=== PATIENT | female | born 1950 | race Caucasian/White ===

== ENCOUNTER 2018-04-28 00:52 | Outpatient (CLI) | payer OTHER, SELFPAY ==
--- NOTE | 2018-04-28 15:50 | DI.RAD_ITS ---
SYMPTOMS/DIAGNOSIS: MENOPAUSE, Z78.0 DEXA SCAN WITH MOHAN: The MOHAN image shows no evidence of compression fractures. The bone mineral density measurement of the lumbar spine correspond to a total T score of -1.5, in the osteopenic range. The bone mineral density measurements of the left hip correspond to a total T score of -1.7. The femoral neck T score is -2.5, at the borderline of osteoporosis. The bone mineral density measurements of the left forearm correspond to a total T score of -1.2 and a T score of the distal third of -1.1. IMPRESSION: Osteopenia of the lumbar spine and left forearm. Osteoporosis of the left femoral neck.
== END 2018-04-28 01:12 ==
PROVIDERS: PCP Internal Medicine; Visit Provider Family Medicine
DX: M81.0 Age-related osteoporosis without current pathological fracture (principal); M85.88 Other specified disorders of bone density and structure, other site; Z78.0 Asymptomatic menopausal state
CPT/HCPCS: 77080

== ENCOUNTER 2018-07-28 14:20 | Outpatient (CLI) | payer OTHER, SELFPAY ==
[2018-07-28 14:53] LABS: HCT 38.6 % (36.0-46.0); HGB 12.8 g/dL (12.0-15.5); Mean Corp. HGB Concentration 33.2 g/dL (32.0-36.0); Mean Corpuscular Hemoglobin 33.1 pg (27.0-33.0); Mean Corpuscular Volume 99.7 fL (80-95); Mean Platelet Volume 9.4 fL (8.0-11.0); Platelet Count 244 x1000/uL (130-400); RBC 3.87 m/cumm (4.00-5.20); RBC Distribution Width 12.9 % (11.7-14.6); White Blood Cell Count 9.95 k/cumm (4.4-10.8)
[2018-07-28 15:37] LABS: ALT 23 U/L (12-78); AST 17 U/L (15-37)
[2018-07-28 15:38] LABS: Cholesterol 232 mg/dL (50-200); Triglyceride 198 mg/dL (30-150)
== END 2018-07-28 14:40 ==
PROVIDERS: PCP Internal Medicine; Visit Provider Dermatology
DX: L40.0 Psoriasis vulgaris (principal); Z79.899 Other long term (current) drug therapy
CPT/HCPCS: 36415; 85027; 82465; 84450; 84460; 84478

== ENCOUNTER 2019-12-13 00:48 | Outpatient (CLI) | payer OTHER, SELFPAY ==
[2019-12-13 11:18] LABS: HCT 34.3 % (36.0-46.0); HGB 11.2 g/dL (12.0-15.5); Mean Corp. HGB Concentration 32.7 g/dL (32.0-36.0); Mean Corpuscular Hemoglobin 32.6 pg (27.0-33.0); Mean Corpuscular Volume 99.7 fL (80-95); Mean Platelet Volume 8.8 fL (8.0-11.0); Platelet Count 219 x1000/uL (130-400); RBC 3.44 m/cumm (4.00-5.20); RBC Distribution Width 13.9 % (11.7-14.6); White Blood Cell Count 6.94 k/cumm (4.4-10.8)
[2019-12-13 12:08] LABS: ALT 90 U/L (14-59); AST 62 U/L (15-37)
[2019-12-13 12:10] LABS: Cholesterol 210 mg/dL (<200); Triglyceride 191 mg/dL (<150)
== END 2019-12-13 01:08 ==
PROVIDERS: PCP Internal Medicine; Visit Provider Dermatology
DX: L40.0 Psoriasis vulgaris (principal); Z79.899 Other long term (current) drug therapy
CPT/HCPCS: 36415; 85027; 82465; 84450; 84460; 84478

== ENCOUNTER 2020-01-11 01:54 | Outpatient (CLI) | payer OTHER, SELFPAY ==
[2020-01-11 11:40] LABS: HCT 35.3 % (36.0-46.0); HGB 11.3 g/dL (12.0-15.5); Mean Corpuscular Hemoglobin 32.8 pg (27.0-33.0); Mean Corpuscular Volume 102.3 fL (80-95); Mean Platelet Volume 9.4 fL (8.0-11.0); Platelet Count 361 x1000/uL (130-400); RBC 3.45 m/cumm (4.00-5.20); RBC Distribution Width 16.3 % (11.7-14.6); White Blood Cell Count 10.16 k/cumm (4.4-10.8)
[2020-01-11 12:20] LABS: ALT 34 U/L (14-59); AST 29 U/L (15-37)
[2020-01-11 12:22] LABS: Cholesterol 218 mg/dL (<200); Triglyceride 176 mg/dL (<150)
== END 2020-01-11 02:14 ==
PROVIDERS: PCP Internal Medicine; Visit Provider Dermatology
DX: L40.0 Psoriasis vulgaris (principal); Z79.899 Other long term (current) drug therapy
CPT/HCPCS: 36415; 85027; 82465; 84450; 84460; 84478

== ENCOUNTER 2020-01-19 02:06 | Outpatient (CLI) | payer OTHER, SELFPAY ==
--- NOTE | 2020-01-19 12:15 | DI.MAMMO_ITS ---
EXAM: MAMMO SCREENING CLINICAL HISTORY: SCREENING Z12.31 TECHNIQUE: Mammograms were interpreted according to the usual protocol including computer analysis w [employer] CAD system, tomosynthesis and C-view imaging. COMPARISON: FINDINGS: The breasts are of moderate density with fairly symmetrical distribution of fibroglandular tissue. N o dominant mass or microcalcification is identified breast. Current examination is compared with pre vious examinations including December 2017 and there has been no gross interval change in appearance emili rison with the previous examinations. IMPRESSION: No specific evidence of malignancy at this time. Routine screening examinations are suggested yearly intervals in this age group according to the ACS ACR guidelines. BI-RADS Cat 1 - Negative: Breast Density - Category B - Scattered areas of fibroglandular density:
== END 2020-01-19 02:26 ==
PROVIDERS: PCP Internal Medicine; Visit Provider Family Medicine
DX: Z12.31 Encounter for screening mammogram for malignant neoplasm of breast (principal)
CPT/HCPCS: 77063; 77067

== ENCOUNTER 2020-01-25 14:17 | Outpatient (REF) | payer OTHER, SELFPAY ==
[2020-01-25 20:58] LABS: Anion Gap 10.9 mmol/L (3-11); BUN 31 mg/dL (7-18); CO2 24.1 mmol/L (21.0-32.0); CREATININE 1.55 mg/dL (0.55-1.02); Calcium 8.8 mg/dL (8.5-10.1); Chloride 107 mmol/L (98-107); Estimated GFR 33.25 (mL/min/1.73m2); Glucose 118 mg/dL (74-106); Potassium 4.6 mmol/L (3.5-5.1); Sodium 142 mmol/L (136-145); Uric Acid 10.5 mg/dL (2.6-6.0)
[2020-01-25 21:20] LABS: Abs Immature Grans 0.04 k/cumm (0.0-0.09); Absolute Basophil Count 0.05 k/cumm (0.0-0.2); Absolute Eosinophil Count 0.35 k/cumm (0.0-0.7); Absolute Monocyte Count 1.08 k/cumm (0.11-0.7); Absolute Neutrophil Count 8.06 k/cumm (1.2-6.7); Basophils % 0.4; Eosinophils % 3.1; HGB 11.2 g/dL (12.0-15.5); Immature Grans % 0.4 %; Lymphocytes % 15.1; Mean Corpuscular Hemoglobin 33.4 pg (27.0-33.0); Mean Corpuscular Volume 104.5 fL (80-95); Mean Platelet Volume 10.1 fL (8.0-11.0); Monocytes % 9.6; Neutrophils % 71.4; Platelet Count 358 x1000/uL (130-400); RBC 3.35 m/cumm (4.00-5.20); RBC Distribution Width 15.8 % (11.7-14.6); White Blood Cell Count 11.29 k/cumm (4.4-10.8)
[2020-01-25 22:54] LABS: ESR 56 mm/hr (0-30)
== END 2020-01-25 14:37 ==
LOC: NCHCN 14:17
PROVIDERS: PCP Internal Medicine; Visit Provider Nurse Practitioner Family
DX: M79.671 Pain in right foot (principal)
CPT/HCPCS: 80048; 85652; 83874; 84550; 85025

== ENCOUNTER 2020-01-25 15:03 | Outpatient (CLI) | payer OTHER, SELFPAY ==
--- NOTE | 2020-01-25 14:45 | DI.RAD_ITS ---
EXAM: XR FOOT RT COMPLETE CLINICAL HISTORY: RT FOOT PAIN, M79.671. TECHNIQUE: 2D digital imaging was performed. COMPARISON: No exams were available for comparison FINDINGS: BONES: No acute fracture is present. No bony destructive lesion is seen. There is a small enthesophy te at the Achilles insertion site on the calcaneus. JOINTS: No dislocation present. SOFT TISSUE: Normal. IMPRESSION: Unremarkable radiographs of the right foot. DATA REPOSITORY: RADIATION DOSE DELIVERED:
== END 2020-01-25 15:23 ==
PROVIDERS: PCP Internal Medicine; Visit Provider Nurse Practitioner Family
DX: M79.671 Pain in right foot (principal); M76.61 Achilles tendinitis, right leg
CPT/HCPCS: 73630

== ENCOUNTER 2020-06-28 09:14 | Outpatient (REF) | payer OTHER, SELFPAY ==
[2020-06-28 22:34] LABS: HCT 35.6 % (36.0-46.0); HGB 11.5 g/dL (11.2-15.7); MCH 31.9 pg (27.0-33.0); MCHC 32.3 % (32.0-36.0); MCV 98.6 fL (80-95); MPV 9.9 fL (8.0-11.0); Platelet Count 399 10^3/uL (130-400); RBC 3.61 10^6/uL (3.93-5.22); RDW-SD 47.1 fL; WBC 7.75 10^3/uL (4.4-10.8)
[2020-06-28 22:52] LABS: ALT 14 U/L (14-59); AST 14 U/L (15-37); Albumin 3.9 g/dL (3.4-5.0); Alkaline Phosphatase 112 U/L (46-116); Anion Gap 8.4 mmol/L (3-11); BUN 29 mg/dL (7-18); Bilirubin, Total 0.3 mg/dL (0.2-1.0); CO2 26.6 mmol/L (21.0-32.0); CREATININE 1.66 mg/dL (0.55-1.02); Calcium 9.2 mg/dL (8.5-10.1); Calculated LDL 120 mg/dL (<100); Chloride 106 mmol/L (98-107); Cholesterol 213 mg/dL (<200); Estimated GFR 30.63 (mL/min/1.73m2); Glucose 98 mg/dL (74-106); HDL Cholesterol 57 mg/dL (40-60); Potassium 5.3 mmol/L (3.5-5.1); Sodium 141 mmol/L (136-145); Total Protein 7.4 g/dL (6.4-8.2); Triglyceride 184 mg/dL (<150)
== END 2020-06-28 09:34 ==
LOC: NCHCN 09:14
PROVIDERS: PCP Internal Medicine; Visit Provider Family Medicine
DX: Z00.00 Encounter for general adult medical examination without abnormal findings (principal); I10 Essential (primary) hypertension; E66.9 Obesity, unspecified
CPT/HCPCS: 80053; 80061; 85027

== ENCOUNTER 2020-09-01 03:35 | Outpatient (CLI) | payer OTHER, SELFPAY ==
[2020-09-01 12:54] LABS: HGB 10.6 g/dL (11.2-15.7); MCHC 33.1 % (32.0-36.0); MCV 99.7 fL (80-95); MPV 9.2 fL (8.0-11.0); Platelet Count 249 10^3/uL (130-400); RBC 3.21 10^6/uL (3.93-5.22); RDW 14.5 % (11.7-14.6); RDW-SD 51.8 fL; WBC 10.46 10^3/uL (4.4-10.8)
[2020-09-01 14:41] LABS: Cholesterol 220 mg/dL (<200); Triglyceride 178 mg/dL (<150)
[2020-09-01 14:48] LABS: ALT 24 U/L (14-59); AST 17 U/L (15-37)
== END 2020-09-01 03:55 ==
PROVIDERS: PCP Family Medicine; Visit Provider Dermatology
DX: L40.0 Psoriasis vulgaris (principal); Z79.899 Other long term (current) drug therapy
CPT/HCPCS: 36415; 85027; 82465; 84450; 84460; 84478

== ENCOUNTER 2020-09-29 13:36 | Outpatient (REF) | payer OTHER, SELFPAY ==
[2020-09-30 11:44] LABS: COVID-19 RT-PCR UVMMC Result Positive (Negative)
== END 2020-09-29 13:37 | disposition home or self-care (01) ==
LOC: NCHCN 13:36
PROVIDERS: PCP Family Medicine; Visit Provider Family Medicine
DX: Z20.822 Contact with and (suspected) exposure to COVID-19 (principal)
CPT/HCPCS: U0003

== ENCOUNTER 2020-12-04 03:25 | Outpatient (CLI) | payer OTHER, SELFPAY ==
[2020-12-04 09:04] LABS: HCT 34.3 % (36.0-46.0); HGB 10.9 g/dL (11.2-15.7); MCH 32.3 pg (27.0-33.0); MCHC 31.8 % (32.0-36.0); MCV 101.8 fL (80-95); MPV 9.1 fL (8.0-11.0); Platelet Count 200 10^3/uL (130-400); RBC 3.37 10^6/uL (3.93-5.22); RDW 13.4 % (11.7-14.6); RDW-SD 49.1 fL; WBC 4.79 10^3/uL (4.4-10.8)
[2020-12-04 09:52] LABS: ALT 21 U/L (14-59); AST 15 U/L (15-37)
[2020-12-04 09:53] LABS: Cholesterol 193 mg/dL (<200); Triglyceride 175 mg/dL (<150)
== END 2020-12-04 03:26 | disposition home or self-care (01) ==
LOC: LBO 03:26
PROVIDERS: PCP Family Medicine; Visit Provider Dermatology
DX: L40.0 Psoriasis vulgaris (principal); Z79.899 Other long term (current) drug therapy
CPT/HCPCS: 36415; 85027; 82465; 84450; 84460; 84478

== ENCOUNTER 2021-07-06 09:23 | Outpatient (REF) | payer MEDICARE, SELFPAY ==
[2021-07-06 15:56] LABS: ALT 18 U/L (14-59); AST 16 U/L (15-37); Albumin 3.9 g/dL (3.4-5.0); Alkaline Phosphatase 109 U/L (46-116); BUN 35 mg/dL (7-18); Bilirubin, Total 0.4 mg/dL (0.2-1.0); CREATININE 1.7 mg/dL (0.55-1.02); Calcium 8.9 mg/dL (8.5-10.1); Calculated LDL 120 mg/dL (<100); Chloride 107 mmol/L (98-107); Cholesterol 199 mg/dL (<200); Estimated GFR 29.71 (mL/min/1.73m2); Glucose 93 mg/dL (74-106); HDL Cholesterol 59 mg/dL (40-60); Potassium 5.2 mmol/L (3.5-5.1); Sodium 144 mmol/L (136-145); Total Protein 7.3 g/dL (6.4-8.2); Triglyceride 102 mg/dL (<150)
== END 2021-07-06 09:24 | disposition home or self-care (01) ==
LOC: NCHCN 09:23
PROVIDERS: PCP Family Medicine; Visit Provider Family Medicine
DX: I10 Essential (primary) hypertension (principal); E66.9 Obesity, unspecified
CPT/HCPCS: 80053; 80061

== ENCOUNTER 2022-04-18 15:39 | Outpatient (REF) | payer MEDICARE, SELFPAY ==
[2022-04-18 18:25] LABS: Absolute Basophil Count 0.08 10^3/uL (0.0-0.2); Basophils % 0.3; HGB 10.8 g/dL (11.2-15.7); Immature Grans % 1.1; Lymphocytes % 6.7; MCH 32.7 pg (27.0-33.0); MCHC 32.7 % (32.0-36.0); MCV 100 fL (80-95); MPV 9.9 fL (8.0-11.0); Monocytes % 5.4; Neutrophils % 86.5; Platelet Count 364 10^3/uL (130-400); RDW-SD 51.1 fL
[2022-04-18 18:28] LABS: Absolute Lymphocyte Count 1.82 10^3/uL (1.2-3.4); Absolute Monocyte Count 1.46 10^3/uL (0.1-0.8); Absolute Neutrophil Count 23.43 10^3/uL (1.2-6.7)
[2022-04-18 18:40] LABS: WBC 27.09 10^3/uL (4.4-10.8)
[2022-04-18 18:45] LABS: ALT 10 U/L (14-59); AST 14 U/L (15-37); Albumin 3.5 g/dL (3.4-5.0); Alkaline Phosphatase 93 U/L (46-116); Anion Gap 12.3 mmol/L (3-11); BUN 38 mg/dL (7-18); Bilirubin, Total 0.7 mg/dL (0.2-1.0); CO2 22.7 mmol/L (21.0-32.0); CREATININE 2.1 mg/dL (0.55-1.02); Calcium 8.8 mg/dL (8.5-10.1); Chloride 98 mmol/L (98-107); Estimated GFR 24.73 (mL/min/1.73m2); Glucose 120 mg/dL (74-106); Potassium 4.3 mmol/L (3.5-5.1); Sodium 133 mmol/L (136-145); Total Protein 7.3 g/dL (6.4-8.2)
[2022-04-18 18:48] LABS: Diff Comment Agrees w/ Instrument; RBC Morphology Normal
== END 2022-04-18 15:40 | disposition home or self-care (01) ==
LOC: NCHCN 15:39
PROVIDERS: PCP Family Medicine; Visit Provider Nurse Practitioner Family
DX: R10.9 Unspecified abdominal pain (principal)
CPT/HCPCS: 80053; 85025; 87086

== ENCOUNTER 2022-04-19 08:57 | Inpatient (IN) | payer MEDICARE, SELFPAY ==
[2022-04-19] VITALS (46 sets, daily range): BP systolic 69–135; BP diastolic 51–81; PULSE 70–103; RESP 11–19; TEMP 35.9–37.6; O2SAT 93–99
--- NOTE | 2022-04-19 09:15 | DI.CT_ITS ---
Exam(s) CT ABDOMEN PELVIS WO EXAM: CT ABDOMEN PELVIS WO INDICATION: abd pain. COMPARISON: No exams were available for comparison TECHNIQUE: FINDINGS: CT examination of the abdomen and pelvis was performed with oral contrast only. Images obtained through the lung bases show marked pulmonary emphysematous changes.. The liver is unremarkable in appearance. Gallbladder and bile ducts are CT normal. Pancreas appears normal. Spleen is unremarkable in appearance. Adrenals appear normal. The kidneys are unremarkable with no evidence of hydronephrosis, nephrolithiasis, or renal mass.. . Abdominal aorta is of normal diameter and no major vascular abnormality is seen. No abdominal wall hernia. No abdominal or pelvic adenopathy. Cable Installation Manager structures not well visualized, uterus appears atrophic or absent.. Appendix is normal. There is wall thickening of the sigmoid colon and there is pericolonic fat stran ding and small quantity of free fluid in the pelvis. Additionally, there is an approximately 2 cm in diameter fluid and gas collection seen adjacent to the colon and adjacent to small bowel without luis tierra defined fat planes between the viscera, this could represent a small Holly colonic abscess althou gh it may just represent intraluminal gas and fluid. There is trace gas in the mesocolon consistent with micro perforation. Urinary bladder is nearly empty.. IMPRESSION: The appearance is consistent with sigmoid diverticulitis, possible small Holly colonic abscess adjacen t to the sigmoid as described above. Micro perforation is noted. Appropriate follow-up studies sean stoll.. RADIATION DOSE DELIVERED: 767.26mGy.cm Total DLP 767.26mGy.cm Total DLP !Error CTDIvol RADIATION OPTIMIZATION: All CT scans at this facility use at least one of these dose optimization te chniques: automated exposure control; mA and/or kV adjustment per patient size (includes targeted exa ms where dose is matched to clinical indication); or iterative reconstruction.
--- NOTE | 2022-04-19 09:31 | ED.GENADUL_ITS ---
Discharge Plan Disposition Patient Disposition: [facility] INPATIENT Condition: Fair Discharge Details Clinical Impression: Acute diverticulitis, Decreased renal function Admit Date/Time: 04/19/22 11:41 Admit Provider: Ashley Robbins Attending Provider: Ashley Robbins Primary Care Provider: Stephanie Stephens ED Provider: Ed Burroughs Discharge Data Discharge Date/Time-TO BE ENTERED AT DEPARTURE: 04/19/22 12:58 Medical Decision Making Patient referred to the emergency department for chief complaint of abdominal pain with diarrhea for the past 3 days. Primary care perform labs and noted a significant elevation of WBCs. Patient states no improvement of symptoms. She does have significant pain this morning and took 1000 mg of acetaminophen prior to arrival. Patient denies nausea vomiting, denies any bloody stools or mucus in her diarrhea, denies travel or other people within the home with similar symptoms. Physical exam shows right lower quadrant tenderness otherwise unremarkable exam. Patient does state that she has had a hysterectomy with at least 1 ovary removed, but does still have her appendix. Patient denies any vaginal or urinary symptoms at this time. We will plan on checking labs and CT imaging. Pending results we will give patient fluid bolus, Toradol for slightly noted fever, and small dose of morphine. Reviewed patient's CBC which endorses a continued leukocytosis but slightly improved from 2 days ago but patient still has a white count of 22.59, neutrophil of 19 and monocytes of 1.6. Patient does have chronic but stable anemia. Sodium is 132, BUN is elevated at 41 with creatinine of 2.1 and GFR of 24. This is similar to previous labs. Glucose of 123 and low ALT of 12. Albumin is 3.3 lipase is normal at 103. Still pending urine and stool specimens. While drinking oral contrast patient did have episode of vomiting so stopped contrast and send patient to CAT scan. Spoke to radiologist and reviewed CT imaging which does show a diverticulitis with a questionable 2 cm or less abscess and subtle signs of perforation. we will start patient on Zosyn and call general surgeon on-call. Spoke to on-call general surgeon who agreed to have patient admitted. Patient and family were also in agreement with this plan of care. Patient was stable at time of admission to inpatient unit. Lab Data Lab results reviewed: Yes I reviewed the patient's lab results. HPI General Mode of arrival: ambulatory . Date/Time Provider Initiated Documentation: 04/19/22 09:08 . Limitations to Documentation: no limitations . Information obtained by: patient, family, RN notes reviewed and old records reviewed . History of Present Illness 72 year old F presents to the emergency department with the chief complaint of Abdominal pain, described as moderate, with intensity rated at 4. Quality is described as aching, and is localized to the abdomen. Patient reports no radiation. Patient started experiencing this day(s) (3) and it has been constant. No relieving factors improve symptom(s), No exacerbating factors reported . Patient did receive the following treatments prior to arrival, other (1000 mg acetaminophen) Related Data Home Medications Medication Instructions Recorded Confirmed albuterol sulfate 90 mcg/actuation See Rx Instructions .Route .COMPLEX 04/19/22 04/19/22 aerosol inhaler betamethasone dipropionate 0.05 % 1 applic topical BID 04/19/22 04/19/22 topical cream calcipotriene 0.005 % topical cream 1 applic topical BID 04/19/22 04/19/22 clobetasol 0.05 % topical cream 1 applic topical BID 04/19/22 04/19/22 desoximetasone 0.25 % topical 1 applic topical BID PRN 04/19/22 04/19/22 ointment folic acid 1 mg tablet 1 mg PO DAILY 04/19/22 04/19/22 lisinopril 20 1 tab PO DAILY 04/19/22 04/19/22 mg-hydrochlorothiazide 12.5 mg tablet methotrexate sodium 2.5 mg tablet See Rx Instructions .Route .COMPLEX 04/19/22 04/19/22 Allergies Allergy/AdvReac Type Severity Reaction Status Date / Time No Known Allergies Allergy Unverified 04/19/22 09:07 General Stated Complaint: Abd Prob SUNIL: 3 Review of Systems Constitutional Constitutional: Denies chills and Denies fever(s) Cardiovascular Cardiovascular: Denies chest pain and Denies dyspnea Respiratory Respiratory: Denies cough and Denies dyspnea Gastrointestinal Gastrointestinal: Reports as per HPI, Reports abdominal pain, Denies melena, Denies bloating, Denies hematochezia, Denies change in bowel habits, Denies constipation, Reports diarrhea, Reports loose stools, Denies nausea and Denies vomiting Genitourinary Genitourinary: Denies hematuria, Denies urinary incontinence, Denies urinary hesitancy and Denies urinary urgency Musculoskeletal Musculoskeletal: Denies back pain Integumentary/Breasts Skin/Breast: Denies rash PFSH All Active Problems (Updated 04/20/22 @ 17:34 by Ed Burroughs NP) Decreased renal function (Acute) Acute diverticulitis (Acute) Medical History Asthma Hypertension Osteopenia Psoriasis Social History Smoking/Tobacco Use Status: Former Tobacco Use Smoking risk assessment performed?: Yes Substance use type: does not use Do you feel safe at home: Yes Do you feel safe in your relationship?: Yes Additional Social history: family members at bedside Exam Const General: cooperative Orientation: alert, awake and oriented x3 Resp Effort & Inspection: normal respiratory effort and able to speak in complete sentences Auscultation: clear to auscultation bilaterally Cardio Rate: regular rate Rhythm: regular rhythm Heart Sounds: S1 normal and S2 normal GI Palpation: soft, no hepatosplenomegaly, not firm, no guarding, no masses, no pulsatile masses, not rigid, no splenomegaly and tender in the RLQ; Delong's sign negative, with no rebound tenderness and Rovsing's sign negative Auscultation: normal bowel sounds Back/Spine/Pelvis Back: no CVA tenderness Neuro General: patient alert, patient awake, patient oriented x3, gait normal and moves all extremities Course Vital Signs Vital signs: Vital Signs Temperature 37.6 C H 04/19/22 09:02 Pulse 101 H 04/19/22 09:02 Respiratory Rate 18 04/19/22 09:02 Blood Pressure 135/63 04/19/22 09:02 Pulse Oximetry 98 04/19/22 09:02 Temperature 37.6 C H 04/19/22 09:02 Temperature Source Skin 04/19/22 09:02 Pulse 101 H 04/19/22 09:02 Respiratory Rate 18 04/19/22 09:02 Blood Pressure 135/63 04/19/22 09:02 Blood Pressure Position Sitting 04/19/22 09:02 Pulse Oximetry 98 04/19/22 09:02 Oxygen Delivery Method Room Air 04/19/22 09:02 Oxygen Flow Rate 0 04/19/22 09:02 Pain Level 4 04/19/22 09:02 Lab/Test Results Lab/Test Results: 04/19/22 09:20 Blood Blood Culture - Pending 04/19/22 09:16 Blood Blood Culture - Pending
[2022-04-19 09:35] LABS: Abs Immature Grans 0.24 10^3/uL (0.0-0.06); Absolute Eosinophil Count 0.05 10^3/uL (0.0-0.7); Absolute Lymphocyte Count 1.51 10^3/uL (1.2-3.4); Basophils % 0.3; Eosinophils % 0.2; HCT 32.9 % (36.0-46.0); HGB 10.9 g/dL (11.2-15.7); Immature Grans % 1.1; Lymphocytes % 6.7; MCH 32.3 pg (27.0-33.0); MCHC 33.1 % (32.0-36.0); MCV 98 fL (80-95); MPV 9.5 fL (8.0-11.0); Monocytes % 7.1; Neutrophils % 84.6; Platelet Count 353 10^3/uL (130-400); RBC 3.37 10^6/uL (3.93-5.22); RDW 13.5 % (11.7-14.6); RDW-SD 48.7 fL; WBC 22.59 10^3/uL (4.4-10.8)
[2022-04-19] MEDS: Normal Saline 1,000 ML 500 ML IV (09:36)
[2022-04-19] MEDS: Ketorolac 15 MG/ML VIAL IVP (09:37)
[2022-04-19] MEDS: Ondansetron 4 MG/2 ML VIAL IVP ×2 (09:37→20:37)
[2022-04-19] MEDS: MORPHine 10 MG/ML VIAL 2 MG IVP (09:37)
[2022-04-19 09:39] LABS: Absolute Basophil Count 0.07 10^3/uL (0.0-0.2); Absolute Neutrophil Count 19.11 10^3/uL (1.2-6.7)
[2022-04-19 10:05] LABS: ALT 12 U/L (14-59); AST 15 U/L (15-37); Albumin 3.3 g/dL (3.4-5.0); Alkaline Phosphatase 93 U/L (46-116); BUN 41 mg/dL (7-18); Bilirubin, Total 0.5 mg/dL (0.2-1.0); CREATININE 2.1 mg/dL (0.55-1.02); Calcium 9.2 mg/dL (8.5-10.1); Chloride 99 mmol/L (98-107); Estimated GFR 24.73 (mL/min/1.73m2); Glucose 123 mg/dL (74-106); Lipase 103 U/L (73-393); Magnesium 2.3 mg/dL (1.8-2.4); Potassium 4.3 mmol/L (3.5-5.1); Sodium 132 mmol/L (136-145); Total Protein 8.2 g/dL (6.4-8.2)
[2022-04-19] MEDS: Barium Sulfate 2% W/V-Berry Smoothie 450 ML BTL PO (10:33)
[2022-04-19] MEDS: Prochlorperazine 10 MG/2 ML VIAL 5 MG IVP (11:42)
[2022-04-19] MEDS: PIPERACILLIN/TAZO 3.375 GM in Normal Saline 50 ML IVPB (11:43)
[2022-04-19 11:56] LABS: Source Nasal/Nares
[2022-04-19 12:30] LABS: COVID-19 PCR Negative (Negative)
[2022-04-19] MEDS: FAMOTIDINE 20 MG in Normal Saline 100 ML 400 MG IVPB (12:38)
--- NOTE | 2022-04-19 13:48 | W.PREOPHP ---
Assessment and Plan Assessment and plan (1) Acute diverticulitis: Status: Acute Assessment and plan: Mrs Looney is a pleasant 72-year-old female who is admitted with acute diverticulitis with question of contained perforation/small abscess. She has been ill for about 3 days. Her creatinine is also elevated today which is abnormal for her. I suspect that she is dehydrated. She also has a leukocytosis of over 22,000. Her abdomen is tender but otherwise benign. I discussed with the patient and her what the diverticulitis is in the treatment. Treatment at this time will be supportive. If her symptoms get worse she may end up needing emergency surgery which would require a colostomy. For now we will hydrate and treat her with antibiotics. The patient understands and is in agreement with the plan. Plan: - IV antibiotics - hydration - clear lqiuid diet - pain medication and anti-nausea meds - supportive care - dvt prophilaxis with lovenox - GI prophilaxis with IV pepcid - repeat labs in am (2) Hypertension: History of Present Illness Consults Consult date: 04/19/22 Requesting physician: Ed Burroughs Narrative: Mrs Samson is a pleasant 72 year old? F who presented to the emergency department with the chief complaint of Abdominal pain,?described as moderate,?with intensity rated at 4.?Quality is described as aching,?and is localized to the abdomen.?Patient reports no radiation.?Patient started experiencing this day(s) (3)?and it has been constant.?No relieving factors improve symptom(s),?No exacerbating factors reported . The patient was seen by her primary care physician who ordered some labs. It showed a white blood cell count of 27,000. Work-up in the emergency department shows a white count of 22.5, hemoglobin of 10.9 hematocrit of 32.9, and platelet count of 353. Her sodium is slightly low at 132. Her creatinine is also elevated at 2.1 which is new for her. I suspect that the patient is quite dehydrated due to not feeling well for 3 days. Her does state that she has eaten very little and has also not had a lot to drink over the last 3 days. I reviewed the CT scan report and images Radiologist interpretation: The liver is unremarkable in appearance. Gallbladder and bile ducts are CT normal. Pancreas appears normal. Spleen is unremarkable in appearance. Adrenals appear normal.? The kidneys are unremarkable with no evidence of hydronephrosis, nephrolithiasis, or renal mass.. . Abdominal aorta is of normal diameter and no major vascular abnormality is seen. No abdominal wall hernia. No abdominal or pelvic adenopathy. Supervisor Wet End structures not well visualized, uterus appears atrophic or absent.. Appendix is normal.? There is wall thickening of the sigmoid colon and there is pericolonic fat stranding and small quantity of free fluid in the pelvis.? Additionally, there is an approximately 2 cm in diameter fluid and gas collection seen adjacent to the colon and adjacent to small bowel without clearly defined fat planes between the viscera, this could represent a small Holly colonic abscess although it may just represent intraluminal gas and fluid.? There is trace gas in the mesocolon consistent with micro perforation.? Urinary bladder is nearly empty.. IMPRESSION: The appearance is consistent with sigmoid diverticulitis, possible small Holly colonic abscess adjacent to the sigmoid as described above.? Micro perforation is noted.? Appropriate follow-up studies suggested.. The patient does have a history of hypertension. Her blood pressure is low with a systolic in the 90s. Her heart rate is normal at 70 bpm. She does take lisinopril and hydrochlorothiazide at nighttime. Is any chest pain, shortness of breath, nausea or vomiting. She does not have a history of MS or stroke. She does have some mild COPD for which she takes on albuterol spray infrequently. Review of Systems Constitutional Constitutional: Reports fatigue, Denies fever(s), Denies headache(s), Reports poor appetite and Denies weight loss Eyes Eyes: Denies change in vision ENT Ears, Nose, Mouth, and Throat: Denies headache(s) and Denies hoarseness Cardiovascular Cardiovascular: Denies chest pain, Denies chest pain at rest, Denies irregular heart rhythm, Denies palpitations, Denies dyspnea and Denies dyspnea on exertion Respiratory Respiratory: Denies cough, Denies dyspnea and Denies dyspnea on exertion Gastrointestinal Gastrointestinal: Reports as per HPI, Denies dyspepsia and Denies heartburn Genitourinary Genitourinary: Reports system reviewed and no additional complaints, except as documented Musculoskeletal Musculoskeletal: Reports system reviewed and no additional complaints, except as documented Integumentary/Breasts Skin/Breast: Reports system reviewed and no additional complaints, except as documented Neurologic Neurologic: Reports system reviewed and no additional complaints, except as documented and Denies headache(s) Psychiatric Psychiatric: Reports system reviewed and no additional complaints, except as documented Endocrine Endocrine: Reports system reviewed and no additional complaints, except as documented, Reports fatigue and Denies palpitations Hematologic/Lymphatic Hematologic/Lymphatic: Denies easy bleeding, Denies easy bruising and Denies lymphadenopathy Allergic/Immunologic Allergic/Immunologic: Reports system reviewed and no additional complaints, except as documented PFSH All Active Problems Acute diverticulitis (Acute) Medical History Asthma Hypertension Osteopenia Psoriasis Social History Smoking/Tobacco Use Status: Former Tobacco Use Smoking risk assessment performed?: Yes Substance use type: does not use Do you feel safe at home: Yes Do you feel safe in your relationship?: Yes Additional Social history: family members at bedside Meds Allergies and Home Medications Allergies Allergy/AdvReac Type Severity Reaction Status Date / Time No Known Allergies Allergy Unverified 04/19/22 09:07 Home Medications Medication Instructions Recorded Confirmed Type albuterol sulfate 90 mcg/actuation See Rx Instructions .Route .COMPLEX 04/19/22 04/19/22 History aerosol inhaler betamethasone dipropionate 0.05 % 1 applic topical BID 04/19/22 04/19/22 History topical cream calcipotriene 0.005 % topical cream 1 applic topical BID 04/19/22 04/19/22 History clobetasol 0.05 % topical cream 1 applic topical BID 04/19/22 04/19/22 History desoximetasone 0.25 % topical 1 applic topical BID PRN 04/19/22 04/19/22 History ointment folic acid 1 mg tablet 1 mg PO DAILY 04/19/22 04/19/22 History lisinopril 20 1 tab PO DAILY 04/19/22 04/19/22 History mg-hydrochlorothiazide 12.5 mg tablet methotrexate sodium 2.5 mg tablet See Rx Instructions .Route .COMPLEX 04/19/22 04/19/22 History Exam Const General: cooperative, comfortable and no acute distress Nutritional Appearance: overweight Orientation: alert, awake and oriented x3 HENMT Head: normocephalic and atraumatic Eyes Pupils: PERRL Resp Auscultation: clear to auscultation bilaterally Cardio Rate: regular rate Rhythm: regular rhythm GI Inspection: normal to inspection Palpation: soft, no hepatosplenomegaly and tender (lower abdomen) Auscultation: normal bowel sounds Results Imaging Abdomen CT scan report/results: report reviewed and image reviewed Labs Result diagrams: 04/19/22 09:20 04/19/22 09:20 Labs: Laboratory Results - last 24 hr 04/19/22 04/19/22 04/19/22 09:20 09:20 11:53 WBC 22.59 H RBC 3.37 L Hgb 10.9 L Hct 32.9 L MCV 98 H MCH 32.3 MCHC 33.1 RDW 13.5 Plt Count 353 MPV 9.5 Immature Gran % 1.1 Neutrophils % 84.6 Lymphocytes % 6.7 Monocytes % 7.1 Eosinophils % 0.2 Basophils % 0.3 Nucleated RBC % 0.0 Absolute Neutrophils 19.11 H Absolute Lymphocytes 1.51 Absolute Monocytes 1.60 H Absolute Eosinophils 0.05 Absolute Basophils 0.07 Sodium 132 L Potassium 4.3 Chloride 99 Carbon Dioxide 24.0 Anion Gap 9.0 BUN 41 H Creatinine 2.1 H Est GFR (CKD-EPI 2020) 24.73 Glucose 123 H Calcium 9.2 Magnesium 2.3 Total Bilirubin 0.5 AST 15 ALT 12 L Alkaline Phosphatase 93 Total Protein 8.2 Albumin 3.3 L Lipase 103 COVID-19 Source Nasal/Nares SARS-CoV-2 (PCR) Negative Last Vital Signs Temp 97.0 F L 04/19/22 13:28 Pulse 70 04/19/22 13:28 Resp 16 04/19/22 13:28 BP 97/60 L 04/19/22 13:28 Pulse Ox 98 04/19/22 13:28
[2022-04-19] MEDS: Enoxaparin 30 MG/0.3 ML SYR SC (14:03)
[2022-04-19] MEDS: Normal Saline 1,000 ML 1000 ML IV (14:03)
[2022-04-19] MEDS: Lactated Ringers 1,000 ML 75 ML IV (15:24)
[2022-04-19] MEDS: PIPERACILLIN/TAZO 2.25 GM in Normal Saline 50 ML IVPB ×2 (18:26→23:34)
[2022-04-19] MEDS: Normal Saline Flush 10 ML SYR IVP (20:37)
[2022-04-19] MEDS: Acetaminophen 325 MG TAB 650 MG PO (20:44)
[2022-04-19] MEDS: Albuterol HFA 8 GM 60 PUFF INH IH (21:05)
[2022-04-19 21:11] LABS: Bilirubin Negative (Negative); Blood Negative (Negative); Clarity Clear (Clear); Glucose Negative (Negative); Ketones Negative (Negative); Leukocyte Esterase Negative (Negative); Nitrite Negative (Negative); Specific Gravity 1.025 (1.005-1.025); Urobilinogen 0.2 EU/dL (Up TO 0.2); pH 5.5 (5-8)
[2022-04-19 21:20] LABS: Bacteria Negative HPF (Negative); C & S Indicated? No; Casts Negative LPF (Negative); Crystals Negative HPF (Negative); Epithelial Cells Negative HPF (Negative); Mucus Negative (Negative); RBC Negative HPF (0-2); WBC Negative HPF (0-5)
[2022-04-20 03:34] VITALS: PULSE 80; RESP 14; O2SAT 96
[2022-04-20] MEDS: PIPERACILLIN/TAZO 2.25 GM in Normal Saline 50 ML IVPB ×4 (05:25→23:21)
[2022-04-20 06:07] LABS: Abs Immature Grans 0.11 10^3/uL (0.0-0.06); Absolute Eosinophil Count 0.04 10^3/uL (0.0-0.7); Absolute Monocyte Count 1.18 10^3/uL (0.1-0.8); Basophils % 0.3; Eosinophils % 0.3; HCT 27.6 % (36.0-46.0); Immature Grans % 0.7; Lymphocytes % 8.3; MCH 31.6 pg (27.0-33.0); MCHC 32.6 % (32.0-36.0); MCV 97 fL (80-95); MPV 9.4 fL (8.0-11.0); Neutrophils % 82.4; Platelet Count 284 10^3/uL (130-400); RBC 2.85 10^6/uL (3.93-5.22); RDW 13.2 % (11.7-14.6); RDW-SD 47.7 fL; WBC 14.75 10^3/uL (4.4-10.8)
[2022-04-20 06:10] LABS: Absolute Basophil Count 0.04 10^3/uL (0.0-0.2); Absolute Lymphocyte Count 1.22 10^3/uL (1.2-3.4); Absolute Neutrophil Count 12.15 10^3/uL (1.2-6.7)
[2022-04-20 06:21] LABS: Anion Gap 10.7 mmol/L (3-11); BUN 32 mg/dL (7-18); CO2 20.3 mmol/L (21.0-32.0); CREATININE 1.8 mg/dL (0.55-1.02); Calcium 8.3 mg/dL (8.5-10.1); Chloride 106 mmol/L (98-107); Estimated GFR 29.75 (mL/min/1.73m2); Glucose 111 mg/dL (74-106); Magnesium 2.1 mg/dL (1.8-2.4); Potassium 3.9 mmol/L (3.5-5.1); Sodium 137 mmol/L (136-145)
[2022-04-20 07:40] VITALS: BP 116/61; PULSE 93; RESP 16; TEMP 37.2; O2SAT 97
[2022-04-20] MEDS: hydroCHLOROthiazide 12.5 MG TAB PO (07:43)
[2022-04-20] MEDS: Lisinopril 20 MG TAB PO (07:43)
[2022-04-20] MEDS: Folic Acid 1 MG TAB PO (07:43)
[2022-04-20] MEDS: Lactated Ringers 1,000 ML 75 ML IV (08:07)
--- NOTE | 2022-04-20 11:38 | PGE_ITS ---
Date of Service Date of service: 04/20/22 Time of Service: 11:38 Assessment and Plan Assessment and plan (1) Acute diverticulitis: Status: Acute Assessment and plan: Trupti feels much better today. SHe would like to go home. I reviewed her labs with her and recommend at least one more day of IV antibiotics. Plan: - IV antibiotics - D/C IV fluids - advance diet to low fiber - pain medication and anti-nausea meds - supportive care - dvt prophilaxis with lovenox - GI prophilaxis with IV pepcid - repeat labs in am Maybe home tomorrow (2) Hypertension: Subjective Subjective Interval history since last seen: Trupti is doing well. She has no pain. She feels well. Has been tolerating clear liquids. Feels hungry. Had a low grade fever this morning. HAd a liquid BM Exam HENMT Head: normocephalic and atraumatic Resp Effort & Inspection: normal respiratory effort Auscultation: clear to auscultation bilaterally Cardio Rate: regular rate Rhythm: regular rhythm GI Palpation: soft and nontender Objective Last Vital Signs Temp 99.0 F 04/20/22 07:40 Pulse 93 H 04/20/22 07:40 Resp 16 04/20/22 07:40 BP 116/61 04/20/22 07:40 Pulse Ox 97 04/20/22 07:40 Laboratory Results - last 24 hr 04/19/22 04/19/22 04/20/22 11:53 20:40 05:55 WBC RBC Hgb Hct MCV MCH MCHC RDW Plt Count MPV Immature Gran % Neutrophils % Lymphocytes % Monocytes % Eosinophils % Basophils % Nucleated RBC % Absolute Neutrophils Absolute Lymphocytes Absolute Monocytes Absolute Eosinophils Absolute Basophils Sodium 137 Potassium 3.9 Chloride 106 Carbon Dioxide 20.3 L Anion Gap 10.7 BUN 32 H Creatinine 1.8 H Est GFR (CKD-EPI 2020) 29.75 Glucose 111 H Calcium 8.3 L Magnesium 2.1 Urine Color Yellow Urine Clarity Clear Urine pH 5.5 Ur Specific Aristes 1.025 Urine Protein 30 H Urine Ketones Negative Urine Blood Negative Urine Nitrite Negative Urine Bilirubin Negative Urine Urobilinogen 0.2 Ur Leukocyte Esterase Negative Urine RBC Negative Urine WBC Negative Ur Epithelial Cells Negative Urine Crystals Negative Urine Bacteria Negative Urine Casts Negative Urine Mucus Negative Ur Culture Indicated? No Urine Glucose Negative COVID-19 Source Nasal/Nares SARS-CoV-2 (PCR) Negative 04/20/22 05:55 WBC 14.75 H RBC 2.85 L Hgb 9.0 L Hct 27.6 L MCV 97 H MCH 31.6 MCHC 32.6 RDW 13.2 Plt Count 284 MPV 9.4 Immature Gran % 0.7 Neutrophils % 82.4 Lymphocytes % 8.3 Monocytes % 8.0 Eosinophils % 0.3 Basophils % 0.3 Nucleated RBC % 0.0 Absolute Neutrophils 12.15 H Absolute Lymphocytes 1.22 Absolute Monocytes 1.18 H Absolute Eosinophils 0.04 Absolute Basophils 0.04 Sodium Potassium Chloride Carbon Dioxide Anion Gap BUN Creatinine Est GFR (CKD-EPI 2020) Glucose Calcium Magnesium Urine Color Urine Clarity Urine pH Ur Specific Aristes Urine Protein Urine Ketones Urine Blood Urine Nitrite Urine Bilirubin Urine Urobilinogen Ur Leukocyte Esterase Urine RBC Urine WBC Ur Epithelial Cells Urine Crystals Urine Bacteria Urine Casts Urine Mucus Ur Culture Indicated? Urine Glucose COVID-19 Source SARS-CoV-2 (PCR) PAWSS Have you Been Recently Intoxicated or Drunk Within the Last 30 days?: No Have you Ever Experienced Previous Episodes of Alcohol Withdrawal?: No Have you ever Experienced Withdrawal Seizures?: No Have you ever Experienced Delirium Tremens(DT)s?: No Have you ever undergone Alcohol Rehabilitation Treatment (i.e, inpt ot outpatient treatment programs)?: No Have you ever Experienced Blackouts?: No Have you ever Combined Alcohol with other Downers within the last 90 days?: No Have you ever Combined Alcohol with any other Substance of Abuse during the last 90 days?: No Positive Blood Alcohol level on Presentation? [PCS.BAL]: No Evidence of Increased Autonomic Activity (i.e. HR>120, tremor, sweating, agitation, nausea)?: No Result: 0
[2022-04-20 12:04] LABS: C Diff PCR Negative (Negative)
[2022-04-20] MEDS: Normal Saline Flush 10 ML SYR IVP ×2 (13:27→23:29)
[2022-04-20 15:23] VITALS: BP 136/75; PULSE 88; RESP 16; TEMP 36.8; O2SAT 97
--- NOTE | 2022-04-20 16:38 | INITIAL_ITS ---
- If Service Date Differs Date of service: 04/20/22 Time of Service: 16:38 Care Management Initial Assess REASON FOR HOSPITALIZATION:: Diverticulitis. PAST MEDICAL HISTORY/PAST SURGICAL HISTORY:: All Active Problems: Psoriasis (Chronic), Osteopenia (Acute), Asthma (Chronic), and Hypertension (Chronic). No surgical history noted in chart. PREVIOUS FUNCTIONAL STATUS/SOCIAL/FAMILY SUPPORTS:: Trupti lives in [place] with Andrez, her of 51 years. They have two adult children who reside locally and are supportive. Trupti shares she recently went back to work 3 days a week at [employer] in [place]. She drives and is independent at baseline. CURRENT FUNCTIONAL STATUS:: Trupti is lying in bed watching television when enters her room. She is pleasant and easily engages in conversation. She talks about her family and says her takes really good care of her. Trupti is feeling better and hopes to be able to go home tomorrow. ADVANCE DIRECTIVES:: None on file; patient accepts Advance Directives from to complete at a later time. Has patient been provided with info about the portal/API?: Yes Did the patient sign up for the portal?: No CODE STATUS:: Full Code INSURANCE COVERAGE / FINANCIAL ISSUES:: [employer] Medicare Advantage. CURRENT HOME/COMMUNITY SERVICES/EQUIPMENT:: No home/community services or equipment. PRIMARY CARE PHYSICIAN:: Stephanie Stephens MD ([facility]). POTENTIAL DISCHARGE NEEDS:: Follow up appointments with PCP and surgeon. PATIENT/FAMILY EDUCATION NEEDS:: Review of discharge instructions and discuss Ask Me Three. ANTICIPATED BARRIERS TO DISCHARGE:: No anticipated barriers to discharge. TRANSPORTATION:: Via private vehicle with Andrez. PLAN:: Trupti will likely discharge home with no services when medically cleared by provider. She will follow up with her PCP, surgeon and discharge plan of care as instructed. She will be transported home by her via private vehicle when ready.
[2022-04-20 19:25] VITALS: RESP 16; O2SAT 97
[2022-04-20 23:22] VITALS: TEMP 38.3
[2022-04-20] MEDS: Acetaminophen 325 MG TAB 650 MG PO (23:22)
[2022-04-20 23:40] VITALS: BP 142/66; PULSE 99; RESP 16; TEMP 38.3; O2SAT 96
[2022-04-20] MEDS: Albuterol HFA 8 GM 60 PUFF INH IH (23:47)
[2022-04-21 00:45] VITALS: TEMP 37.7
[2022-04-21 04:05] VITALS: TEMP 37
[2022-04-21] MEDS: Normal Saline Flush 10 ML SYR IVP (05:46)
[2022-04-21] MEDS: PIPERACILLIN/TAZO 2.25 GM in Normal Saline 50 ML IVPB (05:46)
[2022-04-21 07:16] VITALS: BP 121/71; PULSE 94; RESP 16; TEMP 37.4; O2SAT 95
[2022-04-21 07:34] LABS: Abs Immature Grans 0.14 10^3/uL (0.0-0.06); Absolute Basophil Count 0.06 10^3/uL (0.0-0.2); Absolute Eosinophil Count 0.03 10^3/uL (0.0-0.7); Absolute Lymphocyte Count 1.53 10^3/uL (1.2-3.4); Basophils % 0.4; Eosinophils % 0.2; HCT 26.6 % (36.0-46.0); Lymphocytes % 11.1; MCH 32.5 pg (27.0-33.0); MCHC 33.8 % (32.0-36.0); MCV 96 fL (80-95); MPV 9.2 fL (8.0-11.0); Monocytes % 11.5; Neutrophils % 75.8; Platelet Count 313 10^3/uL (130-400); RBC 2.77 10^6/uL (3.93-5.22); RDW 13.4 % (11.7-14.6); WBC 13.78 10^3/uL (4.4-10.8)
[2022-04-21 07:37] LABS: Absolute Monocyte Count 1.58 10^3/uL (0.1-0.8); Absolute Neutrophil Count 10.45 10^3/uL (1.2-6.7)
[2022-04-21 07:40] LABS: BUN 20 mg/dL (7-18); CREATININE 1.6 mg/dL (0.55-1.02); Calcium 8.6 mg/dL (8.5-10.1); Chloride 105 mmol/L (98-107); Estimated GFR 34.27 (mL/min/1.73m2); Glucose 88 mg/dL (74-106); Magnesium 1.8 mg/dL (1.8-2.4); Potassium 3.8 mmol/L (3.5-5.1); Sodium 139 mmol/L (136-145)
[2022-04-21] MEDS: Folic Acid 1 MG TAB PO (08:06)
[2022-04-21] MEDS: Famotidine 20 MG TAB 40 MG PO (08:06)
[2022-04-21 08:16] LABS: Diff Comment Agrees w/ Instrument; RBC Morphology Normal
[2022-04-21 10:56] LABS: Campylobacter PCR Negative (Negative); Salmonella PCR Negative (Negative); Shiga Toxin PCR Negative (Negative); Shigella/Enteroinvasive Ecoli Negative (Negative)
--- NOTE | 2022-04-21 11:13 | W.PM.PROGNOT ---
Date of Service Date of service: 04/21/22 Time of Service: 11:14 Assessment and Plan Assessment and plan (1) Acute diverticulitis: Status: Acute Assessment and plan: Trupti feels much better today. SHe would like to go home. Leukocytosis is continuing to improve Plan: D/c Home on po Augmentin for a total of 14 days of antibiotics Low fiber diet Labs on Friday Follow up with me on Friday (2) Hypertension: Subjective Subjective Interval history since last seen: Mrs Looney is doing well. She continues to eat without increase in pain, no N/v. She has had several liquid stools. She did have some low grade fevers over night Leukocytosis is improving Patient would like to home Exam Const General: cooperative, comfortable and no acute distress HENVA Head: normocephalic and atraumatic Resp Effort & Inspection: normal respiratory effort Auscultation: clear to auscultation bilaterally Cardio Rate: regular rate Rhythm: regular rhythm GI Palpation: soft, no hepatosplenomegaly and nontender Auscultation: normal bowel sounds Objective Last Vital Signs Temp 99.3 F 04/21/22 07:16 Pulse 94 H 04/21/22 07:16 Resp 16 04/21/22 07:16 BP 121/71 04/21/22 07:16 Pulse Ox 95 04/21/22 07:16 Laboratory Results - last 24 hr 04/20/22 04/21/22 04/21/22 09:40 06:15 06:15 WBC 13.78 H RBC 2.77 L Hgb 9.0 L Hct 26.6 L MCV 96 H MCH 32.5 MCHC 33.8 RDW 13.4 Plt Count 313 MPV 9.2 Immature Gran % 1.0 Neutrophils % 75.8 Lymphocytes % 11.1 Monocytes % 11.5 Eosinophils % 0.2 Basophils % 0.4 Nucleated RBC % 0.0 Absolute Neutrophils 10.45 H Absolute Lymphocytes 1.53 Absolute Monocytes 1.58 H Absolute Eosinophils 0.03 Absolute Basophils 0.06 RBC Morphology Normal Sodium 139 Potassium 3.8 Chloride 105 Carbon Dioxide 23.0 Anion Gap 11.0 BUN 20 H Creatinine 1.6 H Est GFR (CKD-EPI 2020) 34.27 Glucose 88 Calcium 8.6 Magnesium 1.8 Stl C.difficile Tox PCR Negative PAWSS Have you Been Recently Intoxicated or Drunk Within the Last 30 days?: No Have you Ever Experienced Previous Episodes of Alcohol Withdrawal?: No Have you ever Experienced Withdrawal Seizures?: No Have you ever Experienced Delirium Tremens(DT)s?: No Have you ever undergone Alcohol Rehabilitation Treatment (i.e, inpt ot outpatient treatment programs)?: No Have you ever Experienced Blackouts?: No Have you ever Combined Alcohol with other Downers within the last 90 days?: No Have you ever Combined Alcohol with any other Substance of Abuse during the last 90 days?: No Positive Blood Alcohol level on Presentation? [PCS.BAL]: No Evidence of Increased Autonomic Activity (i.e. HR>120, tremor, sweating, agitation, nausea)?: No Result: 0
--- NOTE | 2022-04-21 11:17 | W.PM.DS.N ---
Date of service: 04/21/22 Time of Service: 11:29 DS: Diagnosis Discharge Diagnosis (1) Acute diverticulitis: Status: Acute (2) Hypertension: Discharge Plan Disposition Patient Disposition: HOME Condition: Improving Discharge Details Reason For Visit: Diverticulitis? Contained perf Admit Date/Time: 04/19/22 11:41 Admit Provider: Ashley Robbins Attending Provider: Ashley Robbins Primary Care Provider: Stephanie Stephens Hospital Course Hospital Course: Mrs Looney was admitted on 04/19 for acute diverticulitis with question of a contained perforation. Her WBC was just over 22,000. She was started on zosyn. Over the last 2 days she has improved. Her Leukocytosis has steadily decreased to just over 13,000. She is eating and drinking without N/V. Has had some low grade fevers. No N/V. No abdominal pain. Will D/C home on po antibiotics. Low fiber diet Will have her go to then lab on friday and get labs drawn. Follow up with me on Friday. Home Meds and New Rx's Prescriptions: New amoxicillin-pot clavulanate 875-125 mg tablet 1 tab PO TID 11 Days Qty: 33 0RF Rx Instructions: Stop methotrexate while on the antibiotics Continued lisinopril-hydrochlorothiazide 20-12.5 mg tablet 1 tab PO DAILY clobetasol 0.05 % Cream 1 applic TOPICAL BID methotrexate sodium 2.5 mg tablet See Rx Instructions .ROUTE .COMPLEX Label Comments: TAKE SIX TABLETS BY MOUTH WEEKLY (15MG DOSE) Rx Instructions: 2.5 tab orally 1 time a week as needed. desoximetasone 0.25 % Ointment 1 applic TOPICAL BID PRN calcipotriene 0.005 % Cream 1 applic TOPICAL BID betamethasone dipropionate 0.05 % cream 1 applic TOPICAL BID Label Comments: Apply 1 a small amount to affected area twice a day folic acid 1 mg Tablet 1 mg PO DAILY albuterol sulfate 90 mcg/actuation HFA aerosol inhaler See Rx Instructions .ROUTE .COMPLEX Rx Instructions: 2 inh inhaled ;2 puffs using inhaler every 4 hours as needed. Discharge Instructions Instructions: Diverticulitis (DC), Low Fiber Diet (DC) Additional Instructions: Activity at Home after surgery: 1. As tolerated Diet, Nutrition, & wound healin. Avoid alcohol until after you are recovered 2. Low fiber diet Pain Medications: 1. Tylenol 650mg every 6 hours as needed and Ibuprofen 600 mg every 6 hours as needed. You may alternate between the 2 medications every 3 hours For Constipation: 1. Take Milk of Magnesia or MiraLax as needed for constipation Other: 1. PLease call the outpatient lab on Monday 04/23 and make appointment to have labs drawn on friday Please call our office if you develop: 1. Fevers >101.5 2. Nausea or Vomiting 3. Worsening pain If after hours please call the Hospital at and ask to speak to the on-call surgeon Stand Alone Forms: Nursing Discharge Form Referrals: Ashley Robbins MD [ [facility] STAFF PHYSICIAN] - 04/26/22 8:00 am Activity:: Activity as Tolerated Equipment/Supplies:: No Equipment Needed Diet:: low fiber Discharge Orders Discharge Orders: Discharge Order (Routine); Ordered 04/21/22 Ordered By: Ashley Robbins DS: Summary Time Spent with Patient providing and/or coordinating discharge services: Greater than 30 minutes Status at Discharge Functional status at discharge: independent ambulation Overall status at discharge: patient is back to baseline Mental Status: mental status grossly normal Speech and Movement: speech and movement normal Mood: congruent mood Affect: normal affect Exam Psych Mental Status: mental status grossly normal Speech and Movement: speech and movement normal Mood: congruent mood Affect: normal affect DS: Data Vitals/I&O Vitals and I&O: Vital Signs Temperature 99.3 F 04/21/22 07:16 Temperature Source Tympanic 04/21/22 04:05 Pulse 94 H 04/21/22 07:16 Pulse Rhythm Regular 04/21/22 08:42 Pulse 75 04/19/22 12:31 Respiratory Rate 16 04/21/22 07:16 Respiratory Effort Non-Labored 04/21/22 08:42 Respiratory Depth Normal 04/21/22 08:42 Respiratory Pattern Normal 04/21/22 08:42 Blood Pressure 121/71 04/21/22 07:16 Blood Pressure Mean 59 04/19/22 12:31 Blood Pressure Position Sitting 04/19/22 09:02 Pulse Oximetry 95 04/21/22 07:16 Oxygen Delivery Method Room Air 04/21/22 07:16 Oxygen Flow Rate 0 04/21/22 07:16 Pain Level 0 04/21/22 07:16 Comment 04/20/22 23:40 Intake & Output 04/20/22 04/20/22 04/21/22 11:59 23:59 11:59 Intake Total 550.00 / 1091.25 491.25 / 1091.25 100 / 100 Output Total 500 / 900 400 / 900 Balance 50.00 / 191.25 91.25 / 191.25 100 / 100 Intake: IV 550.00 / 1021.25 421.25 / 1021.25 100 / 100 Oral 70 / 70 Output: Urine 400 / 800 400 / 800 Stool 100 / 100 Other: Urine Color Yellow Yellow Yellow Urine Appearance Clear Clear Clear Urine Odor Normal Normal Normal Comment Patient ambulates independently to toilet. Patient ambulates independently to toilet. Stool Occult Blood Negative Stool Size Small Stool Characteristics Liquid Liquid Brown Voiding Methods Toilet Toilet Toilet Data Completed and Pending Labs on day of discharge: Labs from last 24 hours 04/21/22 04/21/22 04/20/22 06:15 06:15 09:40 WBC 13.78 H RBC 2.77 L Hgb 9.0 L Hct 26.6 L MCV 96 H MCH 32.5 MCHC 33.8 RDW 13.4 Plt Count 313 MPV 9.2 Immature Gran % 1.0 Neutrophils % 75.8 Lymphocytes % 11.1 Monocytes % 11.5 Eosinophils % 0.2 Basophils % 0.4 Nucleated RBC % 0.0 Absolute Neutrophils 10.45 H Absolute Lymphocytes 1.53 Absolute Monocytes 1.58 H Absolute Eosinophils 0.03 Absolute Basophils 0.06 RBC Morphology Normal Sodium 139 Potassium 3.8 Chloride 105 Carbon Dioxide 23.0 Anion Gap 11.0 BUN 20 H Creatinine 1.6 H Est GFR (CKD-EPI 2020) 34.27 Glucose 88 Calcium 8.6 Magnesium 1.8 Stl C.difficile Tox PCR Negative Preliminary micro results at discharge 04/19/22 09:43 Blood Culture - Preliminary Blood NO GROWTH 24 HOURS 04/19/22 09:20 Blood Culture - Preliminary Blood NO GROWTH 24 HOURS PFSH All Active Problems Decreased renal function (Acute) Acute diverticulitis (Acute) Medical History Asthma Hypertension Osteopenia Psoriasis Social History Smoking/Tobacco Use Status: Former Tobacco Use Smoking risk assessment performed?: Yes Substance use type: does not use Do you feel safe at home: Yes Do you feel safe in your relationship?: Yes Additional Social history: family members at bedside
--- NOTE | 2022-04-21 12:23 | PDOC.CMDIS ---
- If Service Date Differs Date of service: 04/21/22 Time of Service: 12:23 LACE Index Scoring Tool - Questions: Length of Stay (in days): 1 Acuity (Admit via E.D.?): Yes E.D. Visits: 1 - Answers: Total Score: 5 Risk of Readmission: Low Risk Care Management Discharge Reason for Hospitalization: Diverticulitis. Discharge Plan: Trupti is discharged home with no services. She will follow up with her PCP, Dr. Robbins, surgeon, and plan of care as prescribed. She is driven home by her via private vehicle. Patient/Family Education Needs: Review of discharge instructions and discuss Ask Me Three.
== END 2022-04-21 12:19 | disposition home or self-care (01) | DRG 392 ==
LOC: ER 11:55 → MS 04-20 17:34
PROVIDERS: Admitting Provider Surgery; Emergency Provider Nurse Practitioner Family; PCP Family Medicine; Visit Provider Surgery
DX: K57.20 Diverticulitis of large intestine with perforation and abscess without bleeding (principal); I10 Essential (primary) hypertension; D64.9 Anemia, unspecified; J45.909 Unspecified asthma, uncomplicated; M85.80 Other specified disorders of bone density and structure, unspecified site; L40.9 Psoriasis, unspecified; E86.0 Dehydration; Z79.899 Other long term (current) drug therapy; Z87.891 Personal history of nicotine dependence
CPT/HCPCS: 36415; 80048; 80053; 83690; 87040; 87493; 87505; 87635; 96361; 96365; 96367; 96375; 99223; 99232; 99239; 99284; 99285; 74176; 81003; 81015; 83735; 85025; J0780; J1650; J1885; J2270; J2405; J2543

== ENCOUNTER 2022-04-25 03:18 | Outpatient (CLI) | payer MEDICARE, SELFPAY ==
[2022-04-25 13:26] LABS: Abs Immature Grans 0.42 10^3/uL (0.0-0.06); Absolute Lymphocyte Count 2.16 10^3/uL (1.2-3.4); Absolute Monocyte Count 1.37 10^3/uL (0.1-0.8); Basophils % 0.6; Eosinophils % 0.6; HCT 30.6 % (36.0-46.0); Lymphocytes % 15.2; MCH 31.7 pg (27.0-33.0); MCHC 32.7 % (32.0-36.0); MCV 97 fL (80-95); MPV 8.4 fL (8.0-11.0); Monocytes % 9.6; Platelet Count 407 10^3/uL (130-400); RBC 3.15 10^6/uL (3.93-5.22); RDW 13.3 % (11.7-14.6); RDW-SD 47.6 fL; WBC 14.22 10^3/uL (4.4-10.8)
[2022-04-25 13:37] LABS: Absolute Basophil Count 0.09 10^3/uL (0.0-0.2); Absolute Eosinophil Count 0.09 10^3/uL (0.0-0.7)
[2022-04-25 14:05] LABS: ALT 17 U/L (14-59); AST 15 U/L (15-37); Anion Gap 11.6 mmol/L (3-11); BUN 20 mg/dL (7-18); CO2 26.4 mmol/L (21.0-32.0); CREATININE 1.6 mg/dL (0.55-1.02); Calcium 8.9 mg/dL (8.5-10.1); Chloride 100 mmol/L (98-107); Estimated GFR 34.27 (mL/min/1.73m2); Glucose 122 mg/dL (74-106); Potassium 3.4 mmol/L (3.5-5.1); Sodium 138 mmol/L (136-145)
[2022-04-25 14:06] LABS: Cholesterol 137 mg/dL (<200); Triglyceride 167 mg/dL (<150)
== END 2022-04-25 03:19 | disposition home or self-care (01) ==
LOC: LBO 03:18
PROVIDERS: PCP Family Medicine; Visit Provider Surgery
DX: K57.92 Diverticulitis of intestine, part unspecified, without perforation or abscess without bleeding (principal); Z79.899 Other long term (current) drug therapy; L40.1 Generalized pustular psoriasis
CPT/HCPCS: 36415; 80048; 85027; 82465; 84450; 84460; 84478; 85025

== ENCOUNTER → 2022-04-26 07:54 | Outpatient (BNVA) | payer MEDICARE, SELFPAY | PROVIDERS: PCP Family Medicine; Referring Provider Family Medicine; Visit Provider Surgery | DX: K57.92 Diverticulitis of intestine, part unspecified, without perforation or abscess without bleeding (principal); N28.9 Disorder of kidney and ureter, unspecified | CPT/HCPCS: 99213 ==

== ENCOUNTER 2022-05-02 04:00 | Outpatient (CLI) | payer MEDICARE, SELFPAY ==
[2022-05-02 10:28] LABS: Abs Immature Grans 0.06 10^3/uL (0.0-0.06); Absolute Basophil Count 0.09 10^3/uL (0.0-0.2); Absolute Eosinophil Count 0.36 10^3/uL (0.0-0.7); Absolute Lymphocyte Count 2.51 10^3/uL (1.2-3.4); Absolute Monocyte Count 1.18 10^3/uL (0.1-0.8); Absolute Neutrophil Count 5.52 10^3/uL (1.2-6.7); Basophils % 0.9; Eosinophils % 3.7; HCT 32.5 % (36.0-46.0); HGB 10.6 g/dL (11.2-15.7); Immature Grans % 0.6; Lymphocytes % 25.8; MCH 31.7 pg (27.0-33.0); MCHC 32.6 % (32.0-36.0); MCV 97 fL (80-95); MPV 8.7 fL (8.0-11.0); Monocytes % 12.1; Neutrophils % 56.9; Platelet Count 451 10^3/uL (130-400); RBC 3.34 10^6/uL (3.93-5.22); RDW 13.3 % (11.7-14.6); RDW-SD 47.7 fL; WBC 9.72 10^3/uL (4.4-10.8)
[2022-05-02 10:54] LABS: Anion Gap 9.8 mmol/L (3-11); BUN 26 mg/dL (7-18); CO2 26.2 mmol/L (21.0-32.0); CREATININE 1.7 mg/dL (0.55-1.02); Calcium 9.1 mg/dL (8.5-10.1); Chloride 102 mmol/L (98-107); Estimated GFR 31.86 (mL/min/1.73m2); Glucose 108 mg/dL (74-106); Potassium 4.1 mmol/L (3.5-5.1); Sodium 138 mmol/L (136-145)
== END 2022-05-02 04:01 | disposition home or self-care (01) ==
LOC: LBO 04:00
PROVIDERS: PCP Family Medicine; Visit Provider Surgery
DX: K57.92 Diverticulitis of intestine, part unspecified, without perforation or abscess without bleeding (principal); N28.9 Disorder of kidney and ureter, unspecified
CPT/HCPCS: 36415; 80048; 85025

== ENCOUNTER → 2022-05-03 11:06 | Outpatient (BNVA) | payer MEDICARE, SELFPAY | PROVIDERS: PCP Family Medicine; Referring Provider Family Medicine; Visit Provider Surgery | DX: K57.92 Diverticulitis of intestine, part unspecified, without perforation or abscess without bleeding (principal) | CPT/HCPCS: 99212 ==

== ENCOUNTER 2022-10-14 10:23 | Outpatient (REF) | payer MEDICARE, SELFPAY ==
[2022-10-14 15:03] LABS: ALT 15 U/L (14-59); AST 28 U/L (15-37); Albumin 4.2 g/dL (3.4-5.0); Alkaline Phosphatase 108 U/L (46-116); Anion Gap 10.8 mmol/L (3-11); BUN 28 mg/dL (7-18); Bilirubin, Total 0.5 mg/dL (0.2-1.0); CO2 26.2 mmol/L (21.0-32.0); CREATININE 1.6 mg/dL (0.55-1.02); Calcium 9.7 mg/dL (8.5-10.1); Calculated LDL 118 mg/dL (<100); Chloride 106 mmol/L (98-107); Cholesterol 225 mg/dL (<200); Estimated GFR 34.27 (mL/min/1.73m2); Glucose 107 mg/dL (74-106); HDL Cholesterol 65 mg/dL (40-60); Sodium 143 mmol/L (136-145); Total Protein 7.7 g/dL (6.4-8.2); Triglyceride 213 mg/dL (<150)
[2022-10-14 15:19] LABS: Vitamin D 25 Total 30.4 ng/mL (30-100)
== END 2022-10-14 10:24 | disposition home or self-care (01) ==
LOC: NCHCN 10:23
PROVIDERS: PCP Family Medicine; Visit Provider Family Medicine
DX: I10 Essential (primary) hypertension; M85.88 Other specified disorders of bone density and structure, other site; E66.8 Other obesity
CPT/HCPCS: 80053; 80061; 82306

== ENCOUNTER 2022-11-07 03:14 | Outpatient (CLI) | payer MEDICARE, SELFPAY ==
--- NOTE | 2022-11-07 | DI.MAMMO_ITS ---
Exam(s) MAMMO SCREENING EXAM: MAMMO SCREENING CLINICAL HISTORY: SCREENING, Z12.31 TECHNIQUE: Bilateral full field digital CC and MLO mammographic images were obtained with 3D tomosyn thesis and utilizing computer aided detection (CAD). COMPARISON: Available for comparison. FINDINGS: Masses/Architectural Distortion: None seen. Microcalcifications: No suspicious pleomorphic-type are seen. Skin Thickening/Nipple Retraction: None. IMPRESSION: 1. No significant interval change with no specific features of malignancy noted. 2. Unless there is more urgent need, screening mammography is recommended, as per [employer] [employer] guidelines. BI-RADS Category 1 - Negative Breast Density - Category B - Scattered areas of fibroglandular density Breast density category C or D implies that the patient has dense breast tissue. Dense breast tissue is very common and is not abnormal but dense breast tissue can make it harder to find cancer on a ma mmogram. Also, dense breast tissue may increase their breast cancer risk. This information about the result of the mammogram report was provided to the patient to raise their awareness. Use this report when you speak with the patient about their risks for breast cancer, which includes their family hist ory. At that time, you may recommend for more screening tests (Ultrasound or MRI) as they might be us eful based on their risk. A negative radiographic report should not delay biopsy if a dominant or clinically suspicious mass is present. Up to ten percent of cancers are not identified on mammography. A negative report may reinforce clinical impression. Adenosis and dense breasts may obscure an underlying neoplasm. False positive reports average 6 to 10%. Patient will receive a letter notifying them of these results.
== END 2022-11-07 03:34 ==
PROVIDERS: PCP Family Medicine; Visit Provider Family Medicine
DX: Z12.31 Encounter for screening mammogram for malignant neoplasm of breast (principal)
CPT/HCPCS: 77063; 77067

== ENCOUNTER 2023-03-19 11:21 | Outpatient (REF) | payer MEDICARE, SELFPAY ==
[2023-03-19 15:03] LABS: Abs Immature Grans 0.02 10^3/uL (0.0-0.06); Absolute Basophil Count 0.02 10^3/uL (0.0-0.2); Absolute Eosinophil Count 0.05 10^3/uL (0.0-0.7); Absolute Lymphocyte Count 1.16 10^3/uL (1.2-3.4); Absolute Monocyte Count 0.05 10^3/uL (0.1-0.8); Absolute Neutrophil Count 1.28 10^3/uL (1.2-6.7); Basophils % 0.8; Eosinophils % 1.9; HCT 29.5 % (36.0-46.0); Immature Grans % 0.8; MCH 31.8 pg (27.0-33.0); MCHC 33.9 % (32.0-36.0); MCV 94 fL (80-95); MPV 9.7 fL (8.0-11.0); Monocytes % 1.9; Neutrophils % 49.6; Platelet Count 136 10^3/uL (130-400); RBC 3.14 10^6/uL (3.93-5.22); RDW 12.1 % (11.7-14.6); RDW-SD 41.7 fL; WBC 2.58 10^3/uL (4.4-10.8)
[2023-03-19 15:49] LABS: ALT 15 U/L (14-59); AST 17 U/L (15-37); Albumin 3.4 g/dL (3.4-5.0); Alkaline Phosphatase 86 U/L (46-116); Anion Gap 13.3 mmol/L (3-11); BUN 32 mg/dL (7-18); Bilirubin, Total 0.9 mg/dL (0.2-1.0); CO2 21.7 mmol/L (21.0-32.0); CREATININE 1.2 mg/dL (0.55-1.02); Calcium 8.9 mg/dL (8.5-10.1); Chloride 104 mmol/L (98-107); Estimated GFR 48.09 (mL/min/1.73m2); Glucose 109 mg/dL (74-106); Potassium 4.6 mmol/L (3.5-5.1); Sodium 139 mmol/L (136-145); Total Protein 7.1 g/dL (6.4-8.2)
[2023-03-21 12:13] LABS: HSV Type 1 Ab, IgG Positive (Negative); HSV Type 2 Ab, IgG Negative (Negative)
[2023-03-24 11:25] LABS: Syphilis Serology (RPR) Negative (Negative)
== END 2023-03-19 11:22 | disposition home or self-care (01) ==
LOC: NCHCN 11:21
PROVIDERS: PCP Family Medicine; Visit Provider Family Medicine
DX: R21 Rash and other nonspecific skin eruption (principal); B00.9 Herpesviral infection, unspecified
CPT/HCPCS: 80053; 85025; 86592; 86695; 86696

== ENCOUNTER 2023-03-23 09:44 | Emergency (ER) | payer MEDICARE, SELFPAY ==
[2023-03-23 09:55] VITALS: BP 120/62; PULSE 108; RESP 18; TEMP 36.5; O2SAT 97
--- NOTE | 2023-03-23 11:03 | ED.GENADUL_ITS ---
Discharge Plan Disposition Patient Disposition: Home Condition: Good Discharge Details Clinical Impression: Staph skin infection Primary Care Provider: Stephanie Stephens ED Provider: Homa Hawthorne Home Meds and New Rx's Prescriptions: New doxycycline hyclate 100 mg tablet 100 mg PO BID Qty: 20 0RF Rx Instructions: 100 mg twice daily with food chlorhexidine gluconate 2 % liquid 1 applic topical ONCE Qty: 1 0RF Rx Instructions: as a single dose mupirocin 2 % ointment 1 applic topical BID Qty: 22 0RF Rx Instructions: Applied to the anterior aspect of both nostrils twice a day for 7 days. No Action lisinopril-hydrochlorothiazide 20-12.5 mg tablet 1 tab PO DAILY clobetasol 0.05 % Cream 1 applic TOPICAL BID methotrexate sodium 2.5 mg tablet See Rx Instructions .ROUTE .COMPLEX Patient Comments: TAKE SIX TABLETS BY MOUTH WEEKLY (15MG DOSE) Rx Instructions: 2.5 tab orally 1 time a week as needed. desoximetasone 0.25 % Ointment 1 applic TOPICAL BID PRN calcipotriene 0.005 % Cream 1 applic TOPICAL BID betamethasone dipropionate 0.05 % cream 1 applic TOPICAL BID Patient Comments: Apply 1 a small amount to affected area twice a day folic acid 1 mg Tablet 1 mg PO DAILY albuterol sulfate 90 mcg/actuation HFA aerosol inhaler See Rx Instructions .ROUTE .COMPLEX Rx Instructions: 2 inh inhaled ;2 puffs using inhaler every 4 hours as needed. Discharge Instructions Instructions: MRSA (Methicillin-Resistant Staphylococcus Aureus) (ED) Additional Instructions: Take doxycycline 100 mg twice a day for 7 days. Take this on a full stomach. And avoid sunlight. Asked the pharmacist to recommend a probiotic to take while on doxycycline. Use the topical cream in both nostrils twice a day for 7 days. Wash with chlorhexidine body wash. Call your primary care provider tomorrow for a follow-up appointment and recheck. Return to the emergency department if you develop any difficulty breathing talking or swallowing, fever chills dizziness or any concerns. Discharge Data Discharge Date/Time-TO BE ENTERED AT DEPARTURE: 03/23/23 11:19 Discharge Physician: Homa Hawthorne Medical Decision Making This is a 73-year-old female who presents with lesions which began approximately a week ago. They began in her mouth but now she has lesions on her legs left knee and left arm. These appear to be MRSA. The wounds were not pruritic but are slightly sore. She does not have any animals at home. She has never had any previous similar episodes. Other considerations are insect envenomations or a viral syndrome. My plan will be to prescribe doxycycline and mupirocin to use in her nares to eliminate colonization. I will also advise her to use chlorhexidine washes on her torso, avoiding the face. The patient is not febrile or toxic. I do not see an indication for blood work or imaging. I have reviewed [facility] regarding current treatment. This is not healthcare related. The patient has no history of immune compromise and is not a diabetic. She tells me she was on methotrexate but is no longer taking it Differential Diagnosis Differential Diagnosis: MRSA, insect envenomation, autoimmune disease HPI General Date/Time Provider Initiated Documentation: 03/23/23 10:06 . HPI Narrative: Time seen was 10:50 AM. The patient is a 73-year-old female who presents with a rash which began 1 week ago. The rash began in her mouth. She was seen by Dr. Stephens in the [facility] on Friday and Friday. She was told she had a virus but it is not getting better. She is complaining of severe pain that she is able to drink. She has now noticed lesions on her legs and knees. She has no history of MRSA. She does not have any pets. She denies any sick contacts. She denies any aggravating or alleviating factors. She has taken ibuprofen without relief. She denies any contacts with similar symptoms. Her tetanus is up-to-date. She denies any previous similar symptoms. The lesions that have developed on her extremities are red and weeping. Related Data Home Medications Medication Instructions Recorded Confirmed albuterol sulfate 90 mcg/actuation See Rx Instructions .Route .COMPLEX 04/19/22 03/23/23 aerosol inhaler betamethasone dipropionate 0.05 % 1 applic topical BID 04/19/22 03/23/23 topical cream calcipotriene 0.005 % topical cream 1 applic topical BID 04/19/22 03/23/23 clobetasol 0.05 % topical cream 1 applic topical BID 04/19/22 03/23/23 desoximetasone 0.25 % topical 1 applic topical BID PRN 04/19/22 03/23/23 ointment folic acid 1 mg tablet 1 mg PO DAILY 04/19/22 03/23/23 lisinopril 20 1 tab PO DAILY 04/19/22 03/23/23 mg-hydrochlorothiazide 12.5 mg tablet methotrexate sodium 2.5 mg tablet See Rx Instructions .Route .COMPLEX 04/19/22 03/23/23 chlorhexidine gluconate 2 % 1 applic topical ONCE #1 applic 03/23/23 topical liquid doxycycline hyclate 100 mg tablet 100 mg PO BID #20 tabs 03/23/23 mupirocin 2 % topical ointment 1 applic topical BID #22 grams 03/23/23 Previous Rx's Medication Instructions Recorded chlorhexidine gluconate 2 % 1 applic topical ONCE #1 applic 03/23/23 topical liquid doxycycline hyclate 100 mg tablet 100 mg PO BID #20 tabs 03/23/23 mupirocin 2 % topical ointment 1 applic topical BID #22 grams 03/23/23 Allergies Allergy/AdvReac Type Severity Reaction Status Date / Time sulfur dioxide AdvReac Nausea Unverified 03/23/23 10:13 General Stated Complaint: RashLesion SUNIL: 3 Review of Systems Constitutional Constitutional: Denies fever(s) ENT Ears, Nose, Mouth, and Throat: Denies change in voice, Denies dysphagia, Denies lip swelling, Reports mouth lesions, Reports mouth pain, Denies odynophagia, Denies throat swelling and Denies tongue swelling Gastrointestinal Gastrointestinal: Denies dysphagia and Denies odynophagia Integumentary/Breasts Skin/Breast: Reports system reviewed and no additional complaints, except as documented and Reports sores Allergic/Immunologic Allergic/Immunologic: Denies lip swelling, Denies throat swelling and Denies tongue swelling PFSH All Active Problems Staph skin infection (Acute) Decreased renal function (Acute) Acute diverticulitis (Acute) Medical History Asthma Hypertension Osteopenia Psoriasis Social History Smoking/Tobacco Use Status: Former Tobacco Use Smoking risk assessment performed?: Yes Substance use type: does not use Do you feel safe at home: Yes Do you feel safe in your relationship?: Yes Additional Social history: family members at bedside Exam Const General: cooperative, healthy appearing, comfortable, no acute distress, well developed, well groomed and well hydrated Nutritional Appearance: average body habitus and well nourished Orientation: alert, awake and oriented x3 HENMT Head: normal to inspection, normocephalic and atraumatic Ears: hearing grossly normal bilaterally and external ears normal General nose exam: external nose normal, nares normal and no nasal discharge Face and sinus: normal facial exam, sinuses nontender and face symmetric Mouth: lip normal, tongue normal, oropharynx normal, moist mucous membranes, no muffled voice and other (Normal phonation. The patient is handling secretions.) Throat: posterior oropharynx normal and uvula midline Other: There are lesions on the buccal mucosa of both cheeks which are approximately 1 cm in diameter. There is no swelling beneath the tongue. There is no evidence of buccal cellulitis. She has normal phonation and is handling secretions. Eyes General: appearance normal, both eyes and all related structures Eyelids: eyelids normal Conjunctivae: conjunctivae normal Sclera: sclerae normal Cornea: corneas normal Pupils: PERRL EOM: EOM intact bilaterally and No nystagmus Neck Neck: normal visual inspection, full ROM, no lymphadenopathy, no meningeal signs, trachea midline and supple Lymphatic: no lymphadenopathy noted Chest Chest: normal inspection of the chest Resp Effort & Inspection: normal respiratory effort, able to speak in complete sentences, no audible wheezes, no nasal flaring, no respiratory distress, no retractions, no stridor, not tachypneic, no tracheal deviation, no use of accessory muscles, No prolonged expiratory phase and other (Normal inspiratory to expiratory ratio.) Auscultation: clear to auscultation bilaterally, no rales, no rhonchi, no wheezes and no rubs Tactile Fremitus: tactile fremitus absent Cardio Jugular venous pressure: no JVD Palpation: normal PMI Rate: regular rate Rhythm: regular rhythm Heart Sounds: S1 normal, S2 normal, no gallops, no murmurs and no rubs GI Inspection: normal to inspection and non-distended Palpation: soft, no hepatosplenomegaly, no guarding and nontender Percussion: normal to percussion Auscultation: normal bowel sounds General: No CVA tenderness Back/Spine/Pelvis Back: no CVA tenderness and No back tenderness Cervical Spine: normal cervical lordosis, cervical ROM normal, No cervical muscular tenderness, No pain with cervical ROM, No cervical spinal tenderness and No step off deformity Thoracic/Lumbar Spine: thoracic and lumbar spine normal to inspection, No thoracic spinal tenderness and No lumbar spinal tenderness Pelvis: no pain with anterior-posterior compression and no pain with lateral compression Skin General skin exam: turgor normal, no petechiae, no purpura and other (Skin is normal for ethnicity.) Other: Her skin reveals several lesions which are erythematous raised and which are chico roximately 1 to 2 cm in diameter. Several of the lesions are open in the center with a small amount of serosanguineous material. There is no fluctuance, lymphangitis, subcutaneous emphysema of any of the wounds. There are several on her lower extremities including the left knee and lower legs and 1 on her left arm Neuro General: patient alert, patient awake, patient oriented x3, moves all extremities, no meningeal signs, no focal motor deficits and CN's II-XI intact bilaterally Cranial Nerves: CN's II-XI intact bilaterally, PERRL, accommodation normal, EOM intact bilaterally, no nystagmus, facial strength normal, tongue midline, hearing normal and no nystagmus Cognition: normal cognition Speech: speech normal Gait: normal gait Motor: muscle tone normal throughout and strength 5/5 throughout Sensory Exam: no sensory deficits noted Extrem General: full ROM, capillary refill normal, no clubbing, cyanosis or edema and no calf tenderness Other: Please see above Psych Appearance: grossly normal Affect: normal affect Attitude: cooperative Thought Process: normal Thought Content: normal Insight: insight good Judgment: judgment good Other: The patient appears to have capacity make medical decisions. Course I have advised the patient to take a probiotic while on antibiotics. I have advised her to return here if she develops any new or worrisome symptoms such as fever, red streaking, dizziness or any concerns. I have advised her to follow- up with her primary care provider. I have advised her that a culture was taken and will be resulted in approximately 48 hours. She can obtain those results from her primary care at her follow-up visit. The patient voiced understanding and agreement with the discharge plan. All her questions and concerns were addressed prior to discharge Vital Signs Vital signs: Vital Signs Temperature 36.5 C 03/23/23 09:55 Pulse 108 H 03/23/23 09:55 Respiratory Rate 18 03/23/23 09:55 Blood Pressure 120/62 03/23/23 09:55 Pulse Oximetry 97 03/23/23 09:55 Temperature 36.5 C 03/23/23 09:55 Temperature Source Tympanic 03/23/23 09:55 Pulse 108 H 03/23/23 09:55 Respiratory Rate 18 03/23/23 09:55 Respiratory Effort Normal 03/23/23 10:09 Blood Pressure 120/62 03/23/23 09:55 Blood Pressure Position Sitting 03/23/23 09:55 Pulse Oximetry 97 03/23/23 09:55 Oxygen Delivery Method Room Air 03/23/23 09:55 Oxygen Flow Rate 0 03/23/23 09:55
[2023-03-23] MEDS: Doxycycline Hyclate 100 MG CAP PO (11:08)
== END 2023-03-23 11:19 | disposition home or self-care (01) ==
PROVIDERS: Emergency Provider Emergency Medicine Emergency Medical Services; PCP Family Medicine
DX: L08.9 Local infection of the skin and subcutaneous tissue, unspecified (principal)
CPT/HCPCS: 99283; 87070; 99284

== ENCOUNTER 2023-04-04 22:09 | Inpatient (IN) | payer MEDICARE, SELFPAY ==
[2023-04-04] VITALS (46 sets, daily range): BP systolic 91–134; BP diastolic 48–61; PULSE 92–129; RESP 11–23; TEMP 36.6; O2SAT 96–99
--- NOTE | 2023-04-04 22:15 | RT.EKG_ITS ---
APPROVED REPORT Exam: Resting ECG Reason for Exam: dizzy Patient Location: E HR:112 bpm ECG Measurements Heart Rate 112 AXIS DC 112 P 73 QRSd 89 QRS 39 QT 315 T 41 QTc 430 Conclusion Sinus tachycardia...rate> 99 Narrow complex sinus tachycardia at a rate of 112. Normal axis. Mild ST segment flattening inferior ly and in lateral left chest wall leads. No prior for comparison. No acute injury pattern. QTc wit hin normal limits. Shortened DC interval. No sign of delta wave to suggest WPW.
--- NOTE | 2023-04-04 22:28 | W.ED.GENAD ---
Discharge Plan Discharge Details Chief Complaint: GenMedical Clinical Impression: Lip swelling Primary Care Provider: Stephanie Stephens ED Provider: Boubacar Zaidi [place] Meds and New Rx's Prescriptions: No Action lisinopril-hydrochlorothiazide 20-12.5 mg tablet 1 tab PO DAILY clobetasol 0.05 % Cream 1 applic TOPICAL BID methotrexate sodium 2.5 mg tablet See Rx Instructions .ROUTE .COMPLEX Patient Comments: TAKE SIX TABLETS BY MOUTH WEEKLY (15MG DOSE) Rx Instructions: 2.5 tab orally 1 time a week as needed. desoximetasone 0.25 % Ointment 1 applic TOPICAL BID PRN calcipotriene 0.005 % Cream 1 applic TOPICAL BID betamethasone dipropionate 0.05 % cream 1 applic TOPICAL BID Patient Comments: Apply 1 a small amount to affected area twice a day folic acid 1 mg Tablet 1 mg PO DAILY albuterol sulfate 90 mcg/actuation HFA aerosol inhaler See Rx Instructions .ROUTE .COMPLEX Rx Instructions: 2 inh inhaled ;2 puffs using inhaler every 4 hours as needed. doxycycline hyclate 100 mg tablet 100 mg PO BID Qty: 20 0RF Rx Instructions: 100 mg twice daily with food chlorhexidine gluconate 2 % liquid 1 applic topical ONCE Qty: 1 0RF Rx Instructions: as a single dose mupirocin 2 % ointment 1 applic topical BID Qty: 22 0RF Rx Instructions: Applied to the anterior aspect of both nostrils twice a day for 7 days. Medical Decision Making This is an uncomfortable appearing tachycardic but normothermic 73-year-old female with recent MRSA infection status post doxycycline treatment now with recurrent sore on her lip concerning for the possibility of SJS. Patient does endorse a prodrome of fevers headache and general malaise. She does have some mucous membrane involvement. She is uncomfortable but nontoxic-appearing. She has no history of malignancy making her lower risk for Osman-Hai's. She has no new medications to suggest dress syndrome. No current bullae beyond her lip. No signs of perioral dermatitis. It is certainly possible that the patient could have herpes simplex virus. It is also possible that the patient may have orofacial herpes simplex virus. Erythema multiforme is also a possibility. No recent tick exposure to suggest Lyme disease. No signs of acute necrotizing ulcerative gingivitis. No signs of Ludewig's angina. No pain out of proportion to suggest necrotizing soft tissue infection. Given abdominal pain and my concern for possible malignancy will obtain CT abdomen. Given epigastric nature, we will also obtain a lipase to assess for pancreatitis. Given dizziness will obtain a troponin to suggest for ACS. Patient is not septic appearing and her heart rate normalized without intervention so I did not draw a lactate blood cultures nor treat empirically with IV antibiotics. Patient was not dizzy at the moment and as result my suspicion for any central cause is exceedingly low. As result I did not apply the hints exam as my suspicion was exceedingly low for posterior circulation CVA as patient was not having any truncal ataxia any dysmetria nor any dysdiadochokinesia. She was neurologically intact without any focal neurological deficits so did not feel that she was a tPA candidate. Headache was not sudden in onset so my suspicion is exceedingly low for subarachnoid hemorrhage. No pain when coherent to suggest temporal arteritis and no jaw claudication. No tonic-clonic activity so did not feel that the patient required an EEG. Given my low suspicion for stroke I did not feel that the patient required an MRI. Given her response to outpatient doxycycline on recent visits we will consider repeat course for 5 days of doxycycline given lip swelling and also add 7 days of acyclovir to cover for herpes. Also given systemic symptoms with cutaneous manifestations I considered rheumatological causes and added on ESR and a CRP. Unless patient normalizes her vital signs and is able to tolerate p.o. and feels well to go home she may be a candidate for hospitalization for ongoing monitoring and evaluation however will defer this decision ultimate disposition to Dr. Allen upon his reassessment. Chronic conditions affecting the care of the patient: Actinic keratosis and psoriasis History obtained from an outside historian: Patient's External record review: [facility] EMR Diagnostic interpretations performed by me: Per my independent interpretation EKG shows: Narrow complex sinus tachycardia at a rate of 112. Normal axis. Mild ST segment flattening inferiorly and in lateral left chest wall leads. No prior for comparison. No acute injury pattern. QTc within normal limits. Shortened SC interval. No sign of delta wave to suggest WPW. Medications: NS fluids Social determinants of health affecting disposition: N/A Management discussed with: Dr. Allen Treatment/interventions considered: N/A Response to therapies provided: N/A HPI General Date/Time Provider Initiated Documentation: 04/04/23 22:28. HPI Narrative: This is a 73-year-old female presenting to the emergency department with recurrent rash for the past approximately 2 and half weeks. She was evaluated initially by her primary care provider and was told she had a virus. Subsequently she was seen in the ED approximately 12 days ago and treated for MRSA with doxycycline. Doxycycline improved the symptoms on her hands and legs but the blister on her lip has recurred. She has also felt increasingly weak and not had anything to eat today since breakfast. She has taken no recent falls. She denies dysuria and frequency. She has not been vomiting but she has been nauseous and endorses a central abdominal discomfort. She does not have any chest pain or shortness of breath. She denies diarrhea. She is never any surgeries to her abdomen. He denies routine tobacco, ethanol, and illicits. She has intermittently been dizzy when she stands up. She has had no syncopal episodes. She feels achy. She denies any fevers. She denies any focal areas of weakness. She endorses intermittent headache. She denies jaw claudication and denies pain when combing her hair. Related Data Home Medications Medication Instructions Recorded Confirmed albuterol sulfate 90 mcg/actuation See Rx Instructions .Route .COMPLEX 04/19/22 03/23/23 aerosol inhaler betamethasone dipropionate 0.05 % 1 applic topical BID 04/19/22 03/23/23 topical cream calcipotriene 0.005 % topical cream 1 applic topical BID 04/19/22 03/23/23 clobetasol 0.05 % topical cream 1 applic topical BID 04/19/22 03/23/23 desoximetasone 0.25 % topical 1 applic topical BID PRN 04/19/22 03/23/23 ointment folic acid 1 mg tablet 1 mg PO DAILY 04/19/22 03/23/23 lisinopril 20 1 tab PO DAILY 04/19/22 04/04/23 mg-hydrochlorothiazide 12.5 mg tablet methotrexate sodium 2.5 mg tablet See Rx Instructions .Route .COMPLEX 04/19/22 03/23/23 chlorhexidine gluconate 2 % 1 applic topical ONCE #1 applic 03/23/23 topical liquid doxycycline hyclate 100 mg tablet 100 mg PO BID #20 tabs 03/23/23 mupirocin 2 % topical ointment 1 applic topical BID #22 grams 03/23/23 Previous Rx's Medication Instructions Recorded chlorhexidine gluconate 2 % 1 applic topical ONCE #1 applic 03/23/23 topical liquid doxycycline hyclate 100 mg tablet 100 mg PO BID #20 tabs 03/23/23 mupirocin 2 % topical ointment 1 applic topical BID #22 grams 03/23/23 Allergies Allergy/AdvReac Type Severity Reaction Status Date / Time sulfur dioxide AdvReac Nausea Unverified 04/04/23 22:20 General Stated Complaint: GenMedical SUNIL: 3 PFSH All Active Problems (Updated 04/04/23 @ 23:09 by Boubacar Zaidi MD) Staph skin infection (Acute) Lip swelling (Acute) Decreased renal function (Acute) Acute diverticulitis (Acute) Medical History Asthma Hypertension Osteopenia Psoriasis Social History Smoking/Tobacco Use Status: Former Tobacco Use Smoking risk assessment performed?: Yes Substance use type: does not use Do you feel safe at home: Yes Do you feel safe in your relationship?: Yes Additional Social history: family members at bedside Exam Narrative Exam Narrative: General: Uncomfortable-appearing in no acute distress speaking in complete sentences. Head: Normocephalic, atraumatic. Eye: Extraocular eye movements intact. No conjunctival injection. No scleral icterus. Ear, nose, mouth, throat: Dry mucous membranes. On the lower lip there is an approximately 1-1/2 cm bullae that extends onto the buccal mucosa. Patient also does have well-healing areas to her hands and her left heel. These areas appear to be healing vesicles. Neck: Trachea midline. Cardiovascular: Well-perfused distal extremities. Rapid regular rate Respiratory: Nonlabored respiration.Clear lungs bilaterally. Gastrointestinal: Nondistended abdomen. Epigastric tenderness. Soft abdomen. No rebound. No guarding. Musculoskeletal: No edema. Moving all 4 extremities spontaneously. Skin: well-healing circumferential erythematous areas to hands feet and left heel. No fluctuance. No pain out of proportion. Neurologic: Alert and appropriate, no apparent acute deficits. GCS 15. Moving all 4 extremities spontaneously. No dysmetria. No dysdiadochokinesia. No truncal ataxia. No pronator drift. 5 out of 5 bilateral upper and lower extremity strength. Psychiatric: Mood and manner are appropriate. Grooming and personal hygiene are appropriate. Course Vital Signs Vital signs: Vital Signs Temperature 36.6 C 04/04/23 22:12 Pulse 129 H 04/04/23 22:12 Respiratory Rate 16 04/04/23 22:12 Blood Pressure 134/60 04/04/23 22:12 Pulse Oximetry 96 04/04/23 22:12 Temperature 36.6 C 04/04/23 22:12 Temperature Source Oral 04/04/23 22:12 Pulse 129 H 04/04/23 22:12 Respiratory Rate 16 04/04/23 22:12 Respiratory Effort Normal 04/04/23 22:17 Respiratory Depth Normal 04/04/23 22:17 Respiratory Pattern Normal 04/04/23 22:17 Blood Pressure 134/60 04/04/23 22:12 Pulse Oximetry 96 04/04/23 22:12 Pain Level 5 04/04/23 22:12
[2023-04-04 22:53] LABS: Abs Immature Grans 2.33 10^3/uL (0.0-0.06); HCT 33.7 % (36.0-46.0); MCH 30.4 pg (27.0-33.0); MCHC 32.6 % (32.0-36.0); MCV 93 fL (80-95); MPV 8.8 fL (8.0-11.0); RBC 3.62 10^6/uL (3.93-5.22); RDW 13.2 % (11.7-14.6); WBC 20.72 10^3/uL (4.4-10.8)
[2023-04-04 22:58] LABS: ESR 28 mm/hr (0-30)
[2023-04-04 23:13] LABS: C-Reactive Protein 3.24 mg/dL (0.0-0.3)
[2023-04-04 23:14] LABS: ALT 35 U/L (14-59); AST 25 U/L (15-37); Albumin 3.2 g/dL (3.4-5.0); Alkaline Phosphatase 138 U/L (46-116); Anion Gap 12.3 mmol/L (3-11); Bilirubin, Total 0.4 mg/dL (0.2-1.0); CO2 23.7 mmol/L (21.0-32.0); CREATININE 2.2 mg/dL (0.55-1.02); Calcium 10.2 mg/dL (8.5-10.1); Chloride 108 mmol/L (98-107); Estimated GFR 23.24 (mL/min/1.73m2); Glucose 158 mg/dL (74-106); Potassium 4.3 mmol/L (3.5-5.1); Sodium 144 mmol/L (136-145); Total Protein 7.5 g/dL (6.4-8.2); Troponin I < 50 ng/L (<or=60)
[2023-04-04] MEDS: Normal Saline 500 ML IV (23:19)
[2023-04-04 23:26] LABS: Lipase > 375 U/L (16-77)
[2023-04-04 23:28] LABS: Absolute Neutrophil Count 12.64 10^3/uL (1.2-6.7); Bands % 3
[2023-04-04 23:29] LABS: Absolute Lymphocyte Count 5.39 10^3/uL (1.2-3.4); Absolute Monocyte Count 2.28 10^3/uL (0.1-0.8); Atypical Lymphocytes % 1; Metamyelocytes % 1; Myelocytes % 1; Other Cells % 1
[2023-04-04 23:30] LABS: Diff Comment Manual Differential; RBC Morphology Normal
[2023-04-04 23:32] LABS: BUN 83 mg/dL (7-18)
[2023-04-04 23:33] LABS: Platelet Count 1345 10^3/uL (130-400)
[2023-04-05] VITALS (30 sets, daily range): BP systolic 94–125; BP diastolic 44–74; PULSE 72–113; RESP 10–33; TEMP 35.8–36; O2SAT 96–99
--- NOTE | 2023-04-05 00:01 | DI.CT_ITS ---
Exam(s) CT CHEST/ABD/PEL WO EXAM: CT CHEST/ABD/PEL WO CLINICAL HISTORY: abdominal pain, ?lung cancer vs pancreatic cancer. TECHNIQUE: Imaging Protocol: Axial computed tomography images with coronal and sagittal reformatted images were created and reviewed CONTRAST MATERIAL: Intravenous: none Oral: None COMPARISON: CT CT ABDOMEN PELVIS WO from 04/19/2022 FINDINGS: CHEST: LUNGS: There is COPD emphysematous changes. No infiltrates nor pleural effusions are no ominous pulm onary nodules evident. No pneumothorax. No findings in trachea and mainstem bronchi.. MEDIASTINUM: No obvious hilar nor mediastinal adenopathy. Visualized thyroid unremarkable. CARDIAC: Heart size is normal. There is no pericardial effusion.Caliber of the thoracic aorta is wit hin normal limits. OSSEOUS: No significant osseous lesions.. ABDOMEN: There is no ascites. LIVER: There are no obvious focal hepatic lesions evident of this noninfused study. GALLBLADDER/BILIARY: No obvious gallbladder pathology. CBD is not dilated. PANCREAS: There is mild streaking around the pancreatic head consistent with probable pancreatitis. Also involves the uncinate process. No obvious mass at this level. Remainder of the pancreas appear s unremarkable and the pancreatic duct is not dilated. No obvious adenopathy in this region. No vas cular encasement. SPLEEN: Spleen is not enlarged. No obvious intrasplenic lesions. ADRENALS: There are no significant adrenal masses. KIDNEYS: No calculi nor hydronephrosis. No obvious solid renal masses. No cysts evident. ABDOMINAL AORTA: Calcified. There is an infrarenal abdominal aortic aneurysm no distally with maximu m diameter 2.2 cm just above the aortic bifurcation. This appears similar to previous CT scan 2021. The common iliac arteries are calcified but not enlarged. LYMPH NODES: There is no retroperitoneal nor para-aortic adenopathy. ABDOMINAL WALL/GI: No evidence of significant anterior abdominal wall nor inguinal hernia. No evidence of bowel obstruction. PELVIS: LYMPH NODES: There is no intrapelvic nor inguinal adenopathy. GI: No evidence of appendicitis.Extensive sigmoid diverticulosis but no obvious acute diverticulitis. URINARY BLADDER: No calculi nor obvious masses evident REPRODUCTIVE: Uterus is surgically absent. There are no abnormal adnexal masses. No free fluid. OSSEOUS: No significant osseous lesions. No fractures. Mild degenerative anterolisthesis L4 upon L5. Chronic disc space narrowing L5-S1. IMPRESSION: 1. The main acute finding is at the level the head-uncinate process of the pancreas where there findi ngs consistent with mild pancreatitis. No abnormal fluid collection at this time. No obvious mass. No dilatation of the pancreatic duct. Appropriate follow-up recommended. 2. Heavily calcified abdominal aorta with mild fusiform aneurysm of the distal abdominal aorta exhibi ting maximum diameter 2.2 cm, unchanged from CT scan of 04/19/2022. no iliac artery aneurysms. 3. Extensive sigmoid diverticulosis but no evidence of acute diverticulitis. Also no evidence of chico endicitis. 4. Uterus surgically absent. No abnormal adnexal findings. RADIATION DOSE DELIVERED: 1,017.22mGy.cm Total DLP DATA REPOSITORY: All CT scans at this facility are submitted to the National Radiology Data Registry (NRDR) Dose Index Registry (DIR) with the [employer] ([employer]). RADIATION OPTIMIZATION: All CT scans at this facility use at least one of these dose optimization te chniques: automated exposure control; mA and/or kV adjustment per patient size (includes targeted exa ms where dose is matched to clinical indication); or iterative reconstruction.
[2023-04-05 00:40] LABS: Procalcitonin < 0.1 ng/mL
--- NOTE | 2023-04-05 01:41 | DI.VRAD_ITS ---
PROCEDURE INFORMATION: Exam: CT Chest Without Contrast; Diagnostic Exam date and time: 04/05/2023 12:57 AM Age: 73 years old Clinical indication: Abdominal pain; Generalized; Patient HX: Abd pain ? lung CA v/s pancreatic TECHNIQUE: Imaging protocol: Diagnostic computed tomography of the chest without contrast. Radiation optimization: All CT scans at this facility use at least one of these dose optimization techniques: automated exposure control; mA and/or kV adjustment per patient size (includes targeted exams where dose is matched to clinical indication); or iterative reconstruction. COMPARISON: CT ABDOMEN PELVIS WO 04/19/2022 11:14 AM FINDINGS: Lungs: Unremarkable. No consolidation. No masses. Pleural spaces: Unremarkable. No pneumothorax. No pleural effusion. Heart: Unremarkable. No cardiomegaly. No pericardial effusion. Lymph nodes: Unremarkable. No enlarged lymph nodes. Vasculature: Unremarkable. No aortic aneurysm. Bones/joints: Unremarkable. No acute fracture. Soft tissues: Unremarkable. Other findings: Moderate to severe emphysema. IMPRESSION: Moderate to severe emphysema. PROCEDURE INFORMATION: Exam: CT Abdomen And Pelvis Without Contrast Exam date and time: 04/05/2023 12:57 AM Age: 73 years old Clinical indication: Abdominal pain; Generalized; Patient HX: Abd pain ? lung CA v/s pancreatic TECHNIQUE: Imaging protocol: Computed tomography of the abdomen and pelvis without contrast. Radiation optimization: All CT scans at this facility use at least one of these dose optimization techniques: automated exposure control; mA and/or kV adjustment per patient size (includes targeted exams where dose is matched to clinical indication); or iterative reconstruction. COMPARISON: CT ABDOMEN PELVIS WO 04/19/2022 11:14 AM FINDINGS: Liver: Liver is decreased in volume with some surface irregularity, raising the possibility of cirrhosis. Gallbladder and bile ducts: No choledocholithiasis or biliary ductal dilatation. Normal gallbladder. Pancreas: Inflammation of the head of the pancreas compatible with acute pancreatitis. Spleen: Normal. Adrenal glands: Normal. No mass. Kidneys and ureters: Normal. No hydronephrosis. Stomach and bowel: Colonic diverticulosis. No diverticulitis. No bowel wall thickening or intestinal obstruction. Appendix: Normal appendix. Intraperitoneal space: Unremarkable. No pneumoperitoneum. No abscess. Vasculature: 1.9 cm abdominal aortic aneurysm. No rupture. Lymph nodes: Unremarkable. Urinary bladder: Unremarkable as visualized. Reproductive: Hysterectomy. Bones/joints: Unremarkable. No acute fracture. Soft tissues: Unremarkable. IMPRESSION: 1. Inflammation of the head of the pancreas compatible with acute pancreatitis. 2. Liver is decreased in volume with some surface irregularity, raising the possibility of cirrhosis. Dictated and Authenticated by: Demetris Maddox MD. Ordering:JARRETT Vargas MD
--- NOTE | 2023-04-05 01:49 | W.EDPROG ---
Date of service: 04/05/23 Time of Service: 01:49 Medical Decision Making PAtient's labs show thrombophilia, wbc of 20, lipase over 350, and bun significantly elevated consistent with dehydration and CT consistent with acute pancreatitis. She is stable, still mildly tachycardic on exam. Procalcitonin is reassuring against sepsis so will hold on antibiotics, will discuss with hospitalist about admission Sign Out Sign Out Data: Sign Out Comment: Please follow-up labs and imaging and determine ultimate disposition as to whether or not patient is appropriate for discharge versus requires hospitalization. If she is to be discharged she would likely benefit from outpatient doxycycline and acyclovir prescriptions. Last updated by Boubacar Zaidi MD at 04/04/23 23:55 Discharge Plan Disposition Patient Disposition: Admit to [facility] Condition: Poor Discharge Details Chief Complaint: GenMedical Clinical Impression: Acute pancreatitis, Acute uremia Primary Care Provider: Stephanie Stephens ED Provider: Sam Allen Bairdford Meds and New Rx's Prescriptions: No Action lisinopril-hydrochlorothiazide 20-12.5 mg tablet 1 tab PO DAILY clobetasol 0.05 % Cream 1 applic TOPICAL BID methotrexate sodium 2.5 mg tablet See Rx Instructions .ROUTE .COMPLEX Patient Comments: TAKE SIX TABLETS BY MOUTH WEEKLY (15MG DOSE) Rx Instructions: 2.5 tab orally 1 time a week as needed. desoximetasone 0.25 % Ointment 1 applic TOPICAL BID PRN calcipotriene 0.005 % Cream 1 applic TOPICAL BID betamethasone dipropionate 0.05 % cream 1 applic TOPICAL BID Patient Comments: Apply 1 a small amount to affected area twice a day folic acid 1 mg Tablet 1 mg PO DAILY albuterol sulfate 90 mcg/actuation HFA aerosol inhaler See Rx Instructions .ROUTE .COMPLEX Rx Instructions: 2 inh inhaled ;2 puffs using inhaler every 4 hours as needed. doxycycline hyclate 100 mg tablet 100 mg PO BID Qty: 20 0RF Rx Instructions: 100 mg twice daily with food chlorhexidine gluconate 2 % liquid 1 applic topical ONCE Qty: 1 0RF Rx Instructions: as a single dose mupirocin 2 % ointment 1 applic topical BID Qty: 22 0RF Rx Instructions: Applied to the anterior aspect of both nostrils twice a day for 7 days.
[2023-04-05 01:58] LABS: ETHANOL BLOOD < 3.0 mg/dL (<10)
[2023-04-05] MEDS: Normal Saline 1,000 ML 150 ML IV ×2 (02:06→09:04)
--- NOTE | 2023-04-05 03:59 | HPE_ITS ---
Date of service: 04/05/23 Time of Service: 04:01 Assessment and Plan Assessment and plan (1) Acute pancreatitis: Start date: 04/05/23 Status: Acute Assessment and plan: This is a 73-year-old lady with a history of psoriasis and hypertension who presents with a 2-week history of GI symptoms imaging with labs suggest acute pancreatitis with patient still having gallbladder. She will be treated for possible acute cholecystitis awaiting ultrasound of the gallbladder. We will trend lipase and she will be on bowel rest with clear fluids only with sips as needed. She will be n.p.o. prior to her ultrasound gallbladder. Surgical consult if indicated. Her symptoms of in December with abdominal pain not predominant though this is the top of the differential diagnosis for overall symptoms including decreased intake with dehydration on chronic antihypertensive s and an acute reactive lab. She has not had fever. The bulb over her lower lip and question MRSA in the past could be less significant with her presenting symptoms, physical exam and lab. (2) RUQ abdominal pain: Start date: 04/05/23 Status: Acute Assessment and plan: Present symptoms of 2 weeks history possible cholecystitis and gallbladder pa ncreatitis. Ultrasound the gallbladder and common bile duct. Treated with antibiotic therapy empirically for now awaiting results. Patient will be placed on Rocephin with Flagyl. Zosyn would have severe interaction with methotrexate though the patient may not have been taking this recently and this single agent therapy is deferred. (3) Acute dehydration: Start date: 04/05/23 Status: Acute Assessment and plan: Patient has had decreased intake and lab indicates acute dehydration and reactive state. IV hydration patient already 2 L of normal saline with normal saline at 150 cc an hour. Watch for fluid overload. He has no history of CHF. (4) Hypertension: Assessment and plan: Slightly low at this time and outpatient medical therapy will be held. Hydrochlorothiazide could have caused worsening dehydration with decreased intake. (5) Psoriasis: Assessment and plan: Not appearing active at this time with the patient on methotrexate as an outpatient as needed. The blood on the patient's lower lip is not a typical lesion with stress there was a question of Osman-Hai syndrome but the patient only has 1 lesion on her left and it has lesions over her foot at the onset with question of MRSA. Observation supportive care for now. History of Present Illness History of Present Illness Chief Complaint: Blister on lower lip with decreased eating and drinking, abdominal pain Narrative: This is a 73-year-old female patient who had recently been treated for possible MRSA infection on her foot with doxycycline and now has a recurrent rash over her lower lip which is a large blister with some concerns for Codey Hai syndrome but there have been no other rashes or symptoms. She does have a history of psoriasis and does take methotrexate as needed. She is on multiple thyroid treatments topically. She also endorses abdominal discomfort with decreased eating and drinking over the last 2 weeks but no fever or chills, no cough and nausea but no vomiting. She is chronically on hydrochlorothiazide with lisinopril for hypertension. She has felt somewhat dizzy with standing and walking and in the ED was evaluated for her symptoms with chest CT and abdominal pelvic CT revealing acute pancreatitis with possible cirrhosis and emphysema. There is no evidence of infiltrates such as but pneumonia. She was found to be in acute dehydrated state with elevation of her creatinine almost twice baseline and elevation of her BUN baseline. There was also leukocytosis which was very severe with thrombocytosis which may have been reactive. Generally the patient feels weak and tired and nausea has resolved though her intake as stated has been decreased. She has had no abdominal surgery. She denies alcohol intake. Over the most recent days the patient states she has not been hungry but early during her 2-week history of abdominal discomfort with nausea she stated eating may make her feel slightly better. She is a full code. Review of Systems Narrative: 13 point review of systems negative for any weight loss, has had no diarrhea or constipation along with her abdominal pain, otherwise unrevealing or stable. PFSH All Active Problems RUQ abdominal pain (Acute) Acute dehydration (Acute) Staph skin infection (Acute) Acute pancreatitis (Acute) Acute uremia (Acute) Decreased renal function (Acute) Acute diverticulitis (Acute) Medical History Asthma Hypertension Osteopenia Psoriasis Social History Smoking/Tobacco Use Status: Former Tobacco Use Smoking risk assessment performed?: Yes Substance use type: does not use Housing: other Do you feel safe at home: Yes Do you feel safe in your relationship?: Yes Additional Social history: family members at bedside Meds Allergies and Home Medications Allergies Allergy/AdvReac Type Severity Reaction Status Date / Time sulfur dioxide Allergy Severe Nausea Unverified 04/05/23 02:36 Home Medications Medication Instructions Recorded Confirmed Type albuterol sulfate 90 mcg/actuation See Rx Instructions .Route .COMPLEX 04/19/22 04/05/23 History aerosol inhaler betamethasone dipropionate 0.05 % 1 applic topical BID 04/19/22 04/05/23 History topical cream calcipotriene 0.005 % topical cream 1 applic topical BID 04/19/22 04/05/23 Hi story clobetasol 0.05 % topical cream 1 applic topical BID 04/19/22 04/05/23 History desoximetasone 0.25 % topical 1 applic topical BID PRN 04/19/22 04/05/23 History ointment folic acid 1 mg tablet 1 mg PO DAILY 04/19/22 04/05/23 History lisinopril 20 1 tab PO DAILY 04/19/22 04/04/23 History mg-hydrochlorothiazide 12.5 mg tablet methotrexate sodium 2.5 mg tablet See Rx Instructions .Route .COMPLEX 04/19/22 04/05/23 History chlorhexidine gluconate 2 % 1 applic topical ONCE #1 applic 03/23/23 04/05/23 Rx topical liquid doxycycline hyclate 100 mg tablet 100 mg PO BID #20 tabs 03/23/23 04/05/23 Rx mupirocin 2 % topical ointment 1 applic topical BID #22 grams 03/23/23 04/05/23 Rx Exam Narrative Exam Narrative: General: Patient appears appropriate for age, pleasant affect with good eye contact, monotonous tone to voice with slow speech, alert and oriented x3 and in moderate distress from her fatigue and abdominal discomfort. HEENT: Normocephalic, eyes with pupils equal react light symmetrically, extraocular movement intact and sclera anicteric. Oropharynx with dry mucosa. Neck: Supple without JVD. Back: Stooped posture without CVA tenderness. Patient would not sit up in bed because of fatigue. Lungs: Bronchovesicular breath sounds diffusely with decreased aeration but no focalizing rales or rhonchi. No expiratory wheeze. Breast: Exam deferred. Heart: Tachycardic rate with regular rhythm, no murmurs or gallops appreciated. Abdomen: Obese contour, tender to palpation with guarding over right upper quadrant and epigastrium but no rebound. No true Delong sign. No palpable hepatosplenomegaly. Bowel sounds positive in all quadrants. Genitalia/rectal: Exam deferred. Extremities: Without clubbing, cyanosis or pitting edema. Good capillary refill. Skin: Normal color, warm and dry. Neuro: Nerves II through XII gross intact, no focalizing motor deficits. No tremor. Psych: Flattened affect with normal mood. No abnormal thought processes. Remote and recent memory grossly intact. Results Imaging Imaging Studies: Exam: CT Chest Without Contrast; Diagnostic Exam date and time: 04/05/2023 12:57 AM Age: 73 years old Clinical indication: Abdominal pain; Generalized; Patient HX: Abd pain ? lung CA v/s pancreatic COMPARISON: CT ABDOMEN PELVIS WO 04/19/2022 11:14 AM FINDINGS: Lungs: Unremarkable. No consolidation. No masses. Pleural spaces: Unremarkable. No pneumothorax. No pleural effusion. Heart: Unremarkable. No cardiomegaly. No pericardial effusion. Lymph nodes: Unremarkable. No enlarged lymph nodes. Vasculature: Unremarkable. No aortic aneurysm.? Bones/joints: Unremarkable. No acute fracture. Soft tissues: Unremarkable. Other findings: Moderate to severe emphysema. IMPRESSION: Moderate to severe emphysema. PROCEDURE INFORMATION: Exam: CT Abdomen And Pelvis Without Contrast Exam date and time: 04/05/2023 12:57 AM Age: 73 years old Clinical indication: Abdominal pain; Generalized; Patient HX: Abd pain ? lung CA v/s pancreatic COMPARISON: CT ABDOMEN PELVIS WO 04/19/2022 11:14 AM FINDINGS: Liver: Liver is decreased in volume with some surface irregularity, raising the possibility of cirrhosis. Gallbladder and bile ducts: No choledocholithiasis or biliary ductal dilatation. Normal gallbladder. Pancreas: Inflammation of the head of the pancreas compatible with acute pancreatitis. Spleen: Normal.? Adrenal glands: Normal. No mass. Kidneys and ureters: Normal. No hydronephrosis. Stomach and bowel: Colonic diverticulosis. No diverticulitis. No bowel wall thickening or intestinal obstruction. Appendix: Normal appendix. Intraperitoneal space: Unremarkable. No pneumoperitoneum. No abscess. Vasculature: 1.9 cm abdominal aortic aneurysm. No rupture. Lymph nodes: Unremarkable. Urinary bladder: Unremarkable as visualized. Reproductive: Hysterectomy. Bones/joints: Unremarkable. No acute fracture. Soft tissues: Unremarkable. IMPRESSION: 1. ? Inflammation of the head of the pancreas compatible with acute pancreatitis. 2. ? Liver is decreased in volume with some surface irregularity, raising the possibility of cirrhosis. Labs 04/04/23 22:22 04/04/23 22:22 Labs: Laboratory Results - last 24 hr 04/04/23 04/04/23 04/04/23 22:22 22:22 22:22 WBC 20.72 H RBC 3.62 L Hgb 11.0 L Hct 33.7 L MCV 93 MCH 30.4 MCHC 32.6 RDW 13.2 Plt Count 1345 H* MPV 8.8 Immature Gran % See Differential Neutrophils % 58.0 Band Neutrophils % 3 Lymphocytes % 25.0 Atypical Lymphs % 1 Monocytes % 11.0 Eosinophils % 0.0 Basophils % 0.0 Metamyelocytes % 1 Myelocytes % 1 Other Cells % 1 Nucleated RBC % 0.0 Absolute Neutrophils 12.64 H Absolute Lymphocytes 5.39 H Absolute Monocytes 2.28 H Absolute Eosinophils 0.00 Absolute Basophils 0.00 RBC Morphology Normal ESR Sodium 144 Potassium 4.3 Chloride 108 H Carbon Dioxide 23.7 Anion Gap 12.3 H BUN 83 H* Creatinine 2.2 H Est GFR (CKD-EPI 2020) 23.24 Glucose 158 H Calcium 10.2 H Total Bilirubin 0.4 AST 25 ALT 35 Alkaline Phosphatase 138 H Troponin I < 50 C-Reactive Protein 3.24 H Total Protein 7.5 Albumin 3.2 L Lipase > 375 H Procalcitonin Ethyl Alcohol 04/04/23 04/04/23 04/04/23 22:22 22:22 22:22 WBC RBC Hgb Hct MCV MCH MCHC RDW Plt Count MPV Immature Gran % Neutrophils % Band Neutrophils % Lymphocytes % Atypical Lymphs % Monocytes % Eosinophils % Basophils % Metamyelocytes % Myelocytes % Other Cells % Nucleated RBC % Absolute Neutrophils Absolute Lymphocytes Absolute Monocytes Absolute Eosinophils Absolute Basophils RBC Morphology ESR 28 Sodium Potassium Chloride Carbon Dioxide Anion Gap BUN Creatinine Est GFR (CKD-EPI 2020) Glucose Calcium Total Bilirubin AST ALT Alkaline Phosphatase Troponin I C-Reactive Protein Total Protein Albumin Lipase Procalcitonin < 0.1 Ethyl Alcohol < 3.0 Last Vital Signs Temp 35.9 C L 04/05/23 02:51 Pulse 108 H 04/05/23 02:51 Resp 18 04/05/23 02:51 BP 117/58 L 04/05/23 02:51 Pulse Ox 96 04/05/23 02:51 Time Spent Time spent with Patient: >75 minutes Time was spent: preparing to see the patient(eg.review tests), obtaining and/or reviewing separately otained hiistory, ordering medications,tests, procedures, referring, communicating with other health home care specialist, indepentently interpreting results and care coordination
[2023-04-05] MEDS: cefTRIAXone 2 GM/50 ML BAG IVPB (04:37)
[2023-04-05] MEDS: Heparin 5,000 UNITS/ML VIAL 5000 UNITS SC ×2 (05:10→14:25)
[2023-04-05] MEDS: metroNIDAZOLE 500 MG/100 ML BAG 100 MG IVPB ×2 (05:16→12:27)
[2023-04-05 07:04] LABS: HCT 26.3 % (36.0-46.0); HGB 8.8 g/dL (11.2-15.7); MCH 30.8 pg (27.0-33.0); MCHC 33.5 % (32.0-36.0); MCV 92 fL (80-95); MPV 9.1 fL (8.0-11.0); RBC 2.86 10^6/uL (3.93-5.22); RDW 13.1 % (11.7-14.6); RDW-SD 43.3 fL; WBC 16.19 10^3/uL (4.4-10.8)
[2023-04-05 07:11] LABS: INR 1.1 (0.9-1.1); Prothrombin Time 11.5 sec (9.3-11.0)
[2023-04-05 07:28] LABS: Bilirubin Negative (Negative); Blood Negative (Negative); Clarity Clear (Clear); Glucose Negative (Negative); Ketones Negative (Negative); Leukocyte Esterase Negative (Negative); Nitrite Negative (Negative); Urobilinogen 0.2 mg/dL (Up to 0.2); pH 5.5 (5-8)
[2023-04-05 07:29] LABS: ALT 22 U/L (14-59); AST 18 U/L (15-37); Albumin 2.4 g/dL (3.4-5.0); Alkaline Phosphatase 108 U/L (46-116); Anion Gap 12.1 mmol/L (3-11); BUN 70 mg/dL (7-18); Bilirubin, Total 0.3 mg/dL (0.2-1.0); CO2 21.9 mmol/L (21.0-32.0); CREATININE 1.8 mg/dL (0.55-1.02); Calcium 8.8 mg/dL (8.5-10.1); Chloride 111 mmol/L (98-107); Estimated GFR 29.57 (mL/min/1.73m2); Glucose 129 mg/dL (74-106); Lipase 276 U/L (16-77); Magnesium 1.7 mg/dL (1.8-2.4); Potassium 3.9 mmol/L (3.5-5.1); Sodium 145 mmol/L (136-145); Total Protein 5.9 g/dL (6.4-8.2)
[2023-04-05 07:49] LABS: Platelet Count 964 10^3/uL (130-400)
--- NOTE | 2023-04-05 08:00 | DI.US_ITS ---
Exam(s) US ABDOMEN LIMITED EXAM: US ABDOMEN LIMITED CLINICAL HISTORY: Acute pancreatitis with abdominal pain right upper TECHNIQUE: Ultrasound abdomen performed using standard protocol. COMPARISON: CT scan of 04/05/2023 reviewed. FINDINGS: There is no ascites evident. LIVER: There are no hepatic lesions evident nor dilatation of intrahepatic ducts. GALLBLADDER/BILIARY: There are no gallstones. No gallbladder wall edema nor pericholecystic fluid. The common hepatic duct isnot dilated, measuring 5-6mm at the level of hayder hepatis. PANCREAS: There is no evidence of pancreatic mass nor dilatation of the pancreatic duct. RIGHT KIDNEY:No evidence of solid mass, calculus, nor hydronephrosis. No cortical cysts evident. IMPRESSION: 1. No evidence of cholelithiasis nor dilatation of the biliary tree. 2. No other significant ultrasound findings in the right upper quadrant. 3. There is no ascites. DATA REPOSITORY:
[2023-04-05] MEDS: Polyethylene Glycol 3350 17 GM PACKET PO (09:03)
[2023-04-05] MEDS: MAGNESIUM SULFATE 2 GM/50 ML BAG IVPB (09:04)
[2023-04-05] MEDS: Folic Acid 1 MG TAB PO (09:05)
--- NOTE | 2023-04-05 09:28 | DI.VRAD_ITS ---
PROCEDURE INFORMATION: Exam: US Abdomen, Limited; Right Upper Quadrant Exam date and time: 04/05/2023 8:44 AM Age: 73 years old Clinical indication: Pain; Other: Ruq TECHNIQUE: Imaging protocol: Real time ultrasound of the abdomen with image documentation. Limited exam focused on the right upper quadrant. COMPARISON: CT CHEST/ABD/PEL WO 05/04/2023 00:57 FINDINGS: Liver: Normal echotexture. No mass or ductal dilatation. Normal portal flow. Gallbladder: Normal. No gallstones. There is no gallbladder wall thickening. Biliary ducts: Normal. No stones. No dilation. Pancreas: Visualized pancreas is unremarkable. Right kidney: Normal. No mass or cyst. No hydronephrosis. Intraperitoneal space: No free fluid. IMPRESSION: Normal right upper quadrant US Dictated and Authenticated by: Garrick Johns MD. Ordering:HELLEN Maguire MD
--- NOTE | 2023-04-05 09:34 | PDOC.CMIN ---
Date of service: 04/05/23 Time of Service: 09:34 Care Management Initial Assmt Initial Assessment REASON FOR HOSPITALIZATION:: Acute Pancreatitis, Dehydration PREVIOUS FUNCTIONAL STATUS/SOCIAL/FAMILY SUPPORTS:: Trupti lives in [place] with her Anrdez. She has 2 adult children who live locally. She works part-time at [employer], though has been unable to work for the past 3 weeks due to dizziness and not feeling well. Trupti maintains her home, drives and is independent at baseline with her ADLs. CURRENT FUNCTIONAL STATUS:: Trupti is lying in bed when CM comes to meet with her. Andrez is present in the room. She shares she enjoys working at [employer] and hopes to be returning home soon. ADVANCE DIRECTIVES:: None on file; patient accepted form at last inpatient visit. Has patient been provided with info about the portal/API?: Yes Did the patient sign up for the portal?: No CODE STATUS:: Full Code INSURANCE COVERAGE / FINANCIAL ISSUES:: [facility] Medicare Replacement Plan, Financial Asst 85 CURRENT HOME/COMMUNITY SERVICES/EQUIPMENT:: None. PRIMARY CARE PHYSICIAN:: Stephanei Stephens MD POTENTIAL DISCHARGE NEEDS:: Follow up appointment with PCP and discharge plan of care. PATIENT/FAMILY EDUCATION NEEDS:: Review of discharge instructions and Ask Me Three discussion. ANTICIPATED BARRIERS TO DISCHARGE:: None identified at this time. TRANSPORTATION:: Via private vehicle with . PLAN:: Trupti will likely be discharged home with no services when medically cleared by provider. She will follow up with her PCP and plan of care as instructed. She will be transported home by her via private vehicle when ready. CM will continue to follow. PFSH All Active Problems RUQ abdominal pain (Acute) Acute dehydration (Acute) Staph skin infection (Acute) Acute pancreatitis (Acute) Acute uremia (Acute) Decreased renal function (Acute) Acute diverticulitis (Acute) Medical History Asthma Hypertension Osteopenia Psoriasis Social History Smoking/Tobacco Use Status: Former Tobacco Use Smoking risk assessment performed?: Yes Substance use type: does not use Housing: other Do you feel safe at home: Yes Do you feel safe in your relationship?: Yes Additional Social history: family members at bedside
--- NOTE | 2023-04-05 17:13 | W.PM.DS.N ---
Date of service: 04/05/23 Time of Service: 17:13 DS: Diagnosis Discharge Diagnosis (1) Acute pancreatitis: Status: Resolved (2) SIRS (systemic inflammatory response syndrome): Status: Acute (3) RUQ abdominal pain: Status: Resolved (4) Acute dehydration: Status: Resolved (5) Bullous lesion: Status: Acute (6) Reactive thrombocytosis: Status: Acute (7) Hypertension: (8) Abdominal aortic aneurysm: Status: Acute (9) Diverticulosis: Status: Acute (10) Psoriasis: (11) Normocytic anemia: Status: Acute Discharge Plan Disposition Patient Disposition: Home Condition: Good Discharge Details Reason For Visit: Acute Pancreatitis, Dehydration Admit Date/Time: 04/05/23 06:39 Admit Provider: Andrez Barber Attending Provider: Andrez Barber Primary Care Provider: [facility] Hospital Course Hospital Course: Ms Looney is a 73 year old female with PMHx of hypertension on lisinopril-HCTZ, psoriasis on methotrexate as needed, asthma, osteopenia, who was a patient on [facility] hospitalist service today (04/05/23) having presented with abdominal pain, poor PO intake, nausea, persistent blister on her lower lip x three weeks. On presentation to the ER, the patient was afebrile and mildly tachycardic (120s down to the 90s w/ IV hydration). The patient's workup revealed an elevated white count of 20.72, thrombocytosis with platelet count of 1,345,000, dehydration with Cr of 2.2, up from 1.8 and calcium of 10.2. Her CT chest/abdomen/pelvis revealed mild pancreatitis, no gallstones, a stable 2.2 cm distal abdominal aortic aneurysm, diverticulosis w/o evidence of diverticulitis, emphysematous changes without evidence of an infiltrate. Her procalcitonin was negative. She was empirically started on antibiotics for an intraabdominal process. Blood cultures were collected and are pending at the time of discharge. The patient was hydrated intravenously with resolution of her abdominal symptoms. She was able to tolerate a regular diet. US abdomen did not show cholelithiasis or any other abnormalities. Her leucocytosis had improved from 20.71 to 16.19 before antibiotics could truly take effect, and her platelets went down to 964. Her H/H went down to 8.8 from 11 (when she was hemoconcentrated). The patient has had Hemoglobins closer to 9 and 10 in her past. Anemia studies are ordered and pending at the time of discharge and should be followed up by PCP. The patient will also have an MRCP as an outpatient with results going to the PCP, and I did place a general surgical referral. The patient is back to feeling at her baseline. She is encouraged to drink plenty of water and is safe for return home today. On review of her medications with pharmacy, lisinopril-HCTZ could have been a contributor to pancreatitis, and the patient is told to stop this on discharge. Additionally, her BP at this time does not warrant this therapy. Her PCP may choose to start her on a different antihypertensive if that's appropriate at the time of follow up. The patient did bring up the concern about her lower lip bullous lesion which has been ongoing for three weeks and did not improve with antiherpetic antivirals, per daughter. The patient is followed by Dr Maldonado of dermatology, and my recommendation to her is to follow up with him. The patient is confident she can get in to see him on Friday or early next week. I had asked her to contact her PCP if she is having difficulty. She showed me numerous other small (less than 1 cm in diameter) healed lesions on both her hands and on her L knee. This did not clearly look like Codey Hai's syndrome, nor did they look bullous at the time of my exam. The patient should have bloodwork on 04/05/23 (CBC w/ diff, BMP, magnesium, LFTS, CRP). Should her thrombocytosis persist, it would be a good idea to refer her to hematology. At this time, it appears to have been reactive. She is being discharged without antibiotics as there is no clear infectious source. She is asked to return to the hospital should she feel worse, develop bleeding, fever, chest pain, or shortness of breath. Care for patient as well as completion of her discharge summary on day of discharge took 60 minutes. Home Meds and New Rx's Prescriptions: Continued clobetasol 0.05 % Cream 1 applic TOPICAL BID methotrexate sodium 2.5 mg tablet See Rx Instructions .ROUTE .COMPLEX Patient Comments: TAKE SIX TABLETS BY MOUTH WEEKLY (15MG DOSE) Rx Instructions: 2.5 tab orally 1 time a week as needed. desoximetasone 0.25 % Ointment 1 applic TOPICAL BID PRN calcipotriene 0.005 % Cream 1 applic TOPICAL BID betamethasone dipropionate 0.05 % cream 1 applic TOPICAL BID Patient Comments: Apply 1 a small amount to affected area twice a day folic acid 1 mg Tablet 1 mg PO DAILY albuterol sulfate 90 mcg/actuation HFA aerosol inhaler See Rx Instructions .ROUTE .COMPLEX Rx Instructions: 2 inh inhaled ;2 puffs using inhaler every 4 hours as needed. chlorhexidine gluconate 2 % liquid 1 applic topical ONCE Qty: 1 0RF Rx Instructions: as a single dose mupirocin 2 % ointment 1 applic topical BID Qty: 22 0RF Rx Instructions: Applied to the anterior aspect of both nostrils twice a day for 7 days. Discontinued lisinopril-hydrochlorothiazide 20-12.5 mg tablet 1 tab PO DAILY doxycycline hyclate 100 mg tablet 100 mg PO BID Qty: 20 0RF Rx Instructions: 100 mg twice daily with food Discharge Instructions Instructions: Pancreatitis (DC), Dehydration (DC) Additional Instructions: Follow up with Dr Maldonado as soon as you are able for the blister (bullous lesion) of your lower lip. Return to the hospital with any worsening of your symptoms, such as abdominal pain, vomiting, fever, bleeding, chest pain or shortness of breath. Follow up with your PCP in 1-2 weeks. Follow up with general surgery in 1-2 weeks. Bloodwork on Friday. Stand Alone Forms: Nursing Discharge Form Referrals: Stephanie Stephens [Primary Care Provider] - Brandon Maldonado MD [ CONSULTING PHYSICIAN] - (We will call you on Friday with appointment bullous lesion of lower lip) Alysha Lui DO [OSTEOPATHIC DOCTOR] - (we will call you on Friday with appointment acute pancreatitis ) Activity:: Activity as Tolerated Equipment/Supplies:: No Equipment Needed Diet:: As Tolerated Discharge Orders Discharge Orders: Discharge Order (Routine); Ordered 04/05/23 Ordered By: Sandy Iqbal Other Ambulatory Orders: MR abdomen and/or MRCP wo (Routine) Timeframe: 1 Week Facility: [facility] - Location: DIAGNOSTIC IMAGING Ordered By: Sandy Iqbal Basic Metabolic Panel (Routine) Timeframe: 20230407 Location: Determined by Patient Ordered By: Sandy Iqbal Complete Blood Count w/Diff (Routine) Timeframe: 20230414 Location: Determined by Patient Ordered By: Sandy Iqbal Liver Panel (Routine) Timeframe: 20230407 Location: Determined by Patient Ordered By: Sandy Iqbal Magnesium (Routine) Timeframe: 20230407 Location: Determined by Patient Ordered By: Sandy Iqbal C-Reactive Protein (Routine) Timeframe: 20230407 Location: Determined by Patient Ordered By: Sandy Iqbal DS: Summary Time Spent with Patient providing and/or coordinating discharge services: Greater than 30 minutes Status at Discharge Functional status at discharge: independent ambulation Overall status at discharge: patient is back to baseline Mental Status: mental status grossly normal Speech and Movement: speech and movement normal Mood: congruent mood Affect: normal affect Exam Narrative Exam Narrative: General: pleasant elderly female who appears comfortable in bed, A&Ox3, NAD HEENT: EOMI, MMM, a bullous lesion of lower lip Heart: RRR, no m/r/g, mildly tachycardic Lungs: CTAB Abdomen: soft, nontender, nondistended Extremities: no edema BLEs, several healed small lesions on B hands/LLE Psych Mental Status: mental status grossly normal Speech and Movement: speech and movement normal Mood: congruent mood Affect: normal affect DS: Data Vitals/I&O Vitals and I&O: Vital Signs Temperature 35.9 C L 04/05/23 15:10 Temperature Source Tympanic 04/05/23 15:10 Pulse 95 H 04/05/23 15:10 Pulse Rhythm Regular 04/05/23 16:38 Pulse 100 H 04/05/23 02:31 Respiratory Rate 16 04/05/23 07:09 Respiratory Effort Normal, Non-Labored 04/05/23 16:38 Respiratory Depth Normal 04/05/23 08:00 Respiratory Pattern Normal 04/05/23 08:00 Blood Pressure 110/71 04/05/23 15:10 Blood Pressure Mean 59 04/05/23 02:31 Pulse Oximetry 98 04/05/23 15:10 Oxygen Delivery Method Room Air 04/05/23 15:10 Oxygen Flow Rate 0 04/05/23 15:10 Pain Level 0 04/05/23 15:10 Intake & Output 04/04/23 04/05/23 04/05/23 23:59 11:59 23:59 Intake Total 500 / 500 1160 / 1260 100 / 1260 Balance 500 / 500 1160 / 1260 100 / 1260 Weight 56.699 kg 58.06 kg Intake: IV 500 / 500 1160 / 1260 100 / 1260 Other: Urine Color Yellow Urine Appearance Clear Clear Comment pt stated that she voided this am was not observed Voiding Methods Toilet Data Completed and Pending Completed studies during hospitalization [Text1]: US abdomen 04/05/23: 1.? No evidence of cholelithiasis nor dilatation of the biliary tree.? 2.? No other significant ultrasound findings in the right upper quadrant. 3.? There is no ascites. CT abdomen/pelvis 04/05/23: 1. The main acute finding is at the level the head-uncinate process of the pancreas where there findings consistent with mild pancreatitis.? No abnormal fluid collection at this time.? No obvious mass.? No dilatation of the pancreatic duct.? Appropriate follow-up recommended. 2. Heavily calcified abdominal aorta with mild fusiform aneurysm of the distal abdominal aorta exhibiting maximum diameter 2.2 cm, unchanged from CT scan of 04/19/2022. no iliac artery aneurysms. 3. Extensive sigmoid diverticulosis but no evidence of acute diverticulitis.? Also no evidence of appendicitis. 4.? Uterus surgically absent.? No abnormal adnexal findings. Pending studies at discharge: Anemia studies Tick panel Blood cultures Labs on day of discharge: Labs from last 24 hours 04/05/23 04/05/23 04/05/23 07:15 05:53 05:53 WBC 16.19 H RBC 2.86 L Hgb 8.8 L D Hct 26.3 L MCV 92 MCH 30.8 MCHC 33.5 RDW 13.1 Plt Count 964 H* MPV 9.1 Immature Gran % Neutrophils % Band Neutrophils % Lymphocytes % Atypical Lymphs % Monocytes % Eosinophils % Basophils % Metamyelocytes % Myelocytes % Other Cells % Nucleated RBC % Absolute Neutrophils Absolute Lymphocytes Absolute Monocytes Absolute Eosinophils Absolute Basophils RBC Morphology ESR PT 11.5 H INR 1.1 Sodium Potassium Chloride Carbon Dioxide Anion Gap BUN Creatinine Est GFR (CKD-EPI 2020) Glucose Calcium Magnesium Total Bilirubin AST ALT Alkaline Phosphatase Troponin I C-Reactive Protein Total Protein Albumin Lipase Procalcitonin Urine Color Yellow Urine Clarity Clear Urine pH 5.5 Ur Specific [place] 1.020 Urine Protein Negative Urine Ketones Negative Urine Blood Negative Urine Nitrite Negative Urine Bilirubin Negative Urine Urobilinogen 0.2 Ur Leukocyte Esterase Negative Urine Glucose Negative Ethyl Alcohol B. divergens/MO-1 PCR Babesia duncani (PCR) Babesia microti DNA PCR Lyme Disease Antibody E.chaffeensis DNA (PCR) E.ewingii/canis DNA PCR E.muris eauclairensis (PCR) A. phagocytophilum (PCR) Blood B. miyamotoi (PCR) 04/05/23 04/04/23 04/04/23 05:53 22:22 22:22 WBC RBC Hgb Hct MCV MCH MCHC RDW Plt Count MPV Immature Gran % Neutrophils % Band Neutrophils % Lymphocytes % Atypical Lymphs % Monocytes % Eosinophils % Basophils % Metamyelocytes % Myelocytes % Other Cells % Nucleated RBC % Absolute Neutrophils Absolute Lymphocytes Absolute Monocytes Absolute Eosinophils Absolute Basophils RBC Morphology ESR PT INR Sodium 145 Potassium 3.9 Chloride 111 H Carbon Dioxide 21.9 Anion Gap 12.1 H BUN 70 H Creatinine 1.8 H Est GFR (CKD-EPI 2020) 29.57 Glucose 129 H Calcium 8.8 Magnesium 1.7 L Total Bilirubin 0.3 AST 18 ALT 22 Alkaline Phosphatase 108 Troponin I C-Reactive Protein Total Protein 5.9 L Albumin 2.4 L Lipase 276 H Procalcitonin < 0.1 Urine Color Urine Clarity Urine pH Ur Specific [place] Urine Protein Urine Ketones Urine Blood Urine Nitrite Urine Bilirubin Urine Urobilinogen Ur Leukocyte Esterase Urine Glucose Ethyl Alcohol < 3.0 B. divergens/MO-1 PCR Babesia duncani (PCR) Babesia microti DNA PCR Lyme Disease Antibody E.chaffeensis DNA (PCR) E.ewingii/canis DNA PCR E.muris eauclairensis (PCR) A. phagocytophilum (PCR) Blood B. miyamotoi (PCR) 04/04/23 04/04/23 04/04/23 22:22 22:22 22:22 WBC RBC Hgb Hct MCV MCH MCHC RDW Plt Count MPV Immature Gran % Neutrophils % Band Neutrophils % Lymphocytes % Atypical Lymphs % Monocytes % Eosinophils % Basophils % Metamyelocytes % Myelocytes % Other Cells % Nucleated RBC % Absolute Neutrophils Absolute Lymphocytes Absolute Monocytes Absolute Eosinophils Absolute Basophils RBC Morphology ESR 28 PT INR Sodium Potassium Chloride Carbon Dioxide Anion Gap BUN Creatinine Est GFR (CKD-EPI 2020) Glucose Calcium Magnesium Total Bilirubin AST ALT Alkaline Phosphatase Troponin I C-Reactive Protein 3.24 H Total Protein Albumin Lipase Procalcitonin Urine Color Urine Clarity Urine pH Ur Specific [place] Urine Protein Urine Ketones Urine Blood Urine Nitrite Urine Bilirubin Urine Urobilinogen Ur Leukocyte Esterase Urine Glucose Ethyl Alcohol B. divergens/MO-1 PCR Pending Babesia duncani (PCR) Pending Babesia microti DNA PCR Pending Lyme Disease Antibody Pending E.chaffeensis DNA (PCR) Pending E.ewingii/canis DNA PCR Pending E.muris eauclairensis (PCR) Pending A. phagocytophilum (PCR) Pending Blood B. miyamotoi (PCR) Pending 04/04/23 04/04/23 22:22 22:22 WBC 20.72 H RBC 3.62 L Hgb 11.0 L Hct 33.7 L MCV 93 MCH 30.4 MCHC 32.6 RDW 13.2 Plt Count 1345 H* MPV 8.8 Immature Gran % See Differential Neutrophils % 58.0 Band Neutrophils % 3 Lymphocytes % 25.0 Atypical Lymphs % 1 Monocytes % 11.0 Eosinophils % 0.0 Basophils % 0.0 Metamyelocytes % 1 Myelocytes % 1 Other Cells % 1 Nucleated RBC % 0.0 Absolute Neutrophils 12.64 H Absolute Lymphocytes 5.39 H Absolute Monocytes 2.28 H Absolute Eosinophils 0.00 Absolute Basophils 0.00 RBC Morphology Normal ESR PT INR Sodium 144 Potassium 4.3 Chloride 108 H Carbon Dioxide 23.7 Anion Gap 12.3 H BUN 83 H* Creatinine 2.2 H Est GFR (CKD-EPI 2020) 23.24 Glucose 158 H Calcium 10.2 H Magnesium Total Bilirubin 0.4 AST 25 ALT 35 Alkaline Phosphatase 138 H Troponin I < 50 C-Reactive Protein Total Protein 7.5 Albumin 3.2 L Lipase > 375 H Procalcitonin Urine Color Urine Clarity Urine pH Ur Specific [place] Urine Protein Urine Ketones Urine Blood Urine Nitrite Urine Bilirubin Urine Urobilinogen Ur Leukocyte Esterase Urine Glucose Ethyl Alcohol B. divergens/MO-1 PCR Babesia duncani (PCR) Babesia microti DNA PCR Lyme Disease Antibody E.chaffeensis DNA (PCR) E.ewingii/canis DNA PCR E.muris eauclairensis (PCR) A. phagocytophilum (PCR) Blood B. miyamotoi (PCR) 04/04/23 23:45 Blood Blood Culture - Pending 04/04/23 23:40 Blood Blood Culture - Pending Preliminary micro results at discharge 04/04/23 23:45 Blood Culture - Pending Blood 04/04/23 23:40 Blood Culture - Pending Blood PFSH All Active Problems (Updated 04/05/23 @ 17:34 by Sandy Iqbal MD) Normocytic anemia (Acute) Hypomagnesemia (Acute) Diverticulosis (Acute) Abdominal aortic aneurysm (Acute) SIRS (systemic inflammatory response syndrome) (Acute) Dehydration (Acute) Reactive thrombocytosis (Acute) Bullous lesion (Acute) Staph skin infection (Acute) Acute uremia (Acute) Decreased renal function (Acute) Acute diverticulitis (Acute) Medical History Asthma Hypertension Osteopenia Psoriasis Social History Smoking/Tobacco Use Status: Former Tobacco Use Smoking risk assessment performed?: Yes Substance use type: does not use Housing: other Do you feel safe at home: Yes Do you feel safe in your relationship?: Yes Additional Social history: family members at bedside Time Spent with Patient Time Spent with Patient: 45-69 minutes Time was spent: preparing to see the patient(eg.review tests), obtaining and/or reviewing separately otained hiistory, ordering medications,tests, procedures, referring, communicating with other health transitional care nurse, indepentently interpreting results, counseling the patient and care coordination
[2023-04-05] MEDS: Nystatin 500000 UNITS/5 ML SUSP 5ML CUP PO (18:07)
[2023-04-05 19:10] LABS: Iron 108 ug/dL (50-170); Total Iron Binding Capacity 129 ug/dL (250-450); Transferrin Sat 84 % (15-50)
[2023-04-05 19:37] LABS: Ferritin 381 ng/mL (8-252); Folate 7.9 ng/mL (8.6-20.0); Vitamin B12 389 pg/mL (193-986)
[2023-04-05 19:58] LABS: Lab Add On Test DONE
[2023-04-07 12:50] LABS: Lyme Ab w Rflx to Lyme Confirm Positive (Negative)
[2023-04-07 16:22] LABS: Lyme IgG Ab Equivocal (Negative); Lyme IgM Ab Negative (Negative)
[2023-04-08 14:54] LABS: Anaplasma phagocytophilum Negative (Negative); B. miyamotoi PCR Negative (Negative); Babesia divergens/MO-1 Negative (Negative); Babesia duncani Negative (Negative); Babesia microti Negative (Negative); Ehrlichia chaffeensis Negative (Negative); Ehrlichia ewingii/canis Negative (Negative); Ehrlichia muris eauclairensis Negative (Negative)
== END 2023-04-05 18:20 | disposition home or self-care (01) | DRG 439 ==
LOC: ER 04-05 02:07 → MS 04-05 02:47
PROVIDERS: Emergency Medicine; Internal Medicine; Admitting Provider Family Medicine; Emergency Provider Emergency Medicine; PCP Family Medicine; Visit Provider Family Medicine
DX: K85.90 Acute pancreatitis without necrosis or infection, unspecified (principal); R65.10 Systemic inflammatory response syndrome (SIRS) of non-infectious origin without acute organ dysfunction; E86.0 Dehydration; I10 Essential (primary) hypertension; L40.9 Psoriasis, unspecified; E83.42 Hypomagnesemia; D75.838 Other thrombocytosis; I71.40 Abdominal aortic aneurysm, without rupture, unspecified; D64.9 Anemia, unspecified; J45.909 Unspecified asthma, uncomplicated; M85.80 Other specified disorders of bone density and structure, unspecified site; L08.89 Other specified local infections of the skin and subcutaneous tissue; B95.8 Unspecified staphylococcus as the cause of diseases classified elsewhere; K57.30 Diverticulosis of large intestine without perforation or abscess without bleeding; R23.8 Other skin changes; D72.829 Elevated white blood cell count, unspecified
CPT/HCPCS: 36415; 71250; 80053; 83690; 84145; 85027; 85652; 86617; 87040; 87798; 93005; 96360; 99285; 74176; 76705; 80320; 81003; 82607; 82728; 82746; 83540; 83550; 83735; 84484; 85025; 85610; 86140; 86618; 93010; 99236; J1644

== ENCOUNTER → 2023-04-08 01:04 | Outpatient (CLI) | payer MEDICARE, SELFPAY ==
--- NOTE | 2023-04-08 07:30 | DI.MRI_ITS ---
Exam(s) MR ABDOMEN WO EXAM: MR ABDOMEN WO CLINICAL HISTORY: acute pancreatitis,k85.90 TECHNIQUE: Multiplanar multisequence MRI was performed with both pre and post contrast infused seque nces. Contrast injected sequences were performed following IV injection of cc of Dotarem. COMPARISON: CT CT CHEST/ABD/PEL WO from 04/05/2023 FINDINGS: VISUALIZED LUNG BASES: No pleural effusions evident. There is no ascites evident. No bowel obstruction. LIVER: Liver size is normal. There are no discrete focal hepatic lesions evident on this non few shin dy. No prominent steatosis BILIARY: There is some hyperdense bile in the gallbladder. No calcified gallstones. No gallbladder distention or gallbladder wall edema. Cystic duct is not dilated. CBD is not dilated. CBD diameter is 5-6 mm. The CBD is not dilated. PANCREAS: There is mild streaking in the fat between the pancreatic head and duodenum consistent with inflammatory process, probably pancreatitis and similar to recent findings on CT scan of 04/05/2023. There is no mass evident. No pancreatic duct dilatation. No formed pseudocyst there is no evidenc e of pancreatic mass nor dilatation of the pancreatic duct.No peripancreatic fluid collection. Uncin ate process unremarkable. No regional adenopathy. No vascular encasement. MRCP: Biliary tree is not dilated. No calculi nor mass evident in the CBD. Pancreatic is not dilate d. SPLEEN: Spleen is not enlarged and there are no intrasplenic lesions. ADRENALS: There are no significant adrenal masses. KIDNEYS: No solid renal masses. No hydronephrosis.No cysts evident. ABDOMINAL AORTA: Is mild fusiform dilatation of the inferior abdominal aorta which exhibits maximum d iameter of 2.2 cm ANTERIOR ABDOMINAL WALL/GI: There is no evidence of significant anterior abdominal wall hernia in the field of view of this study.Is no evidence of obvious bowel obstruction. OSSEOUS: There are no lytic osseous lesions in the field of view of this study. IMPRESSION: 1. In this patient who has evidence of pancreatitis evident on recent CT scan the appearance on the M RI is similar to the CT scan. There is no pancreatic mass nor dilatation pancreatic duct and there i s no formed pseudocyst. 2. Biliary tree is not dilated. 3. There is no ascites. DATA REPOSITORY:
== END ==
PROVIDERS: PCP Family Medicine; Visit Provider Internal Medicine
DX: K85.90 Acute pancreatitis without necrosis or infection, unspecified (principal)
CPT/HCPCS: 74181

== ENCOUNTER 2023-04-10 04:07 | Outpatient (CLI) | payer MEDICARE, SELFPAY ==
[2023-04-10 14:02] LABS: HGB 9.1 g/dL (11.2-15.7); MCH 31.2 pg (27.0-33.0); MCHC 32.5 % (32.0-36.0); MCV 96 fL (80-95); MPV 8.7 fL (8.0-11.0); Platelet Count 459 10^3/uL (130-400); RBC 2.92 10^6/uL (3.93-5.22); RDW 13.2 % (11.7-14.6); RDW-SD 45.6 fL; WBC 24.42 10^3/uL (4.4-10.8)
[2023-04-10 14:22] LABS: Absolute Lymphocyte Count 2.93 10^3/uL (1.2-3.4); Absolute Monocyte Count 1.95 10^3/uL (0.1-0.8); Atypical Lymphocytes % 0; Bands % 1
[2023-04-10 14:23] LABS: Absolute Neutrophil Count 19.29 10^3/uL (1.2-6.7); Diff Comment Manual Differential; Hypochromasia 1+; Myelocytes % 1; Polychromasia Present
[2023-04-10 15:08] LABS: ALT 18 U/L (14-59); AST 18 U/L (15-37); Albumin 2.5 g/dL (3.4-5.0); Alkaline Phosphatase 133 U/L (46-116); BUN 23 mg/dL (7-18); Bilirubin, Direct 0.1 mg/dL (0.0-0.2); Bilirubin, Total 0.2 mg/dL (0.2-1.0); C-Reactive Protein 2.02 mg/dL (0.0-0.3); CREATININE 1.4 mg/dL (0.55-1.02); Calcium 8.5 mg/dL (8.5-10.1); Chloride 107 mmol/L (98-107); Estimated GFR 39.97 (mL/min/1.73m2); Glucose 115 mg/dL (74-106); Magnesium 1.7 mg/dL (1.8-2.4); Potassium 3.9 mmol/L (3.5-5.1); Sodium 141 mmol/L (136-145); Total Protein 6.3 g/dL (6.4-8.2)
== END 2023-04-10 04:08 | disposition home or self-care (01) ==
LOC: LBO 04:08
PROVIDERS: PCP Family Medicine; Visit Provider Internal Medicine
DX: K85.90 Acute pancreatitis without necrosis or infection, unspecified (principal); R65.10 Systemic inflammatory response syndrome (SIRS) of non-infectious origin without acute organ dysfunction; E83.42 Hypomagnesemia; D75.838 Other thrombocytosis
CPT/HCPCS: 36415; 80048; 80076; 83735; 85025; 86140

== ENCOUNTER 2023-10-21 08:43 | Outpatient (REF) | payer MEDICARE, SELFPAY ==
[2023-10-21 14:22] LABS: HCT 36.5 % (36.0-46.0); HGB 11.9 g/dL (11.2-15.7); MCH 31.7 pg (27.0-33.0); MCHC 32.6 % (32.0-36.0); MCV 97 fL (80-95); MPV 9.4 fL (8.0-11.0); Platelet Count 308 10^3/uL (130-400); RBC 3.75 10^6/uL (3.93-5.22); RDW 13.4 % (11.7-14.6); WBC 7.46 10^3/uL (4.4-10.8)
[2023-10-21 14:37] LABS: ALT 16 U/L (14-59); AST 15 U/L (15-37); Albumin 3.7 g/dL (3.4-5.0); Alkaline Phosphatase 122 U/L (46-116); Anion Gap 9.4 mmol/L (3-11); BUN 26 mg/dL (7-18); Bilirubin, Total 0.4 mg/dL (0.2-1.0); CO2 26.6 mmol/L (21.0-32.0); CREATININE 1.4 mg/dL (0.55-1.02); Calcium 9.2 mg/dL (8.5-10.1); Calculated LDL 122 mg/dL (<100); Chloride 108 mmol/L (98-107); Cholesterol 216 mg/dL (<200); Estimated GFR 39.97 (mL/min/1.73m2); Glucose 98 mg/dL (74-106); HDL Cholesterol 68 mg/dL (40-60); Potassium 4.5 mmol/L (3.5-5.1); Sodium 144 mmol/L (136-145); Total Protein 7.3 g/dL (6.4-8.2); Triglyceride 130 mg/dL (<150)
== END 2023-10-21 08:44 | disposition home or self-care (01) ==
LOC: NCHCN 08:43
PROVIDERS: PCP Family Medicine; Visit Provider Family Medicine
DX: I10 Essential (primary) hypertension (principal); E66.9 Obesity, unspecified
CPT/HCPCS: 80053; 80061; 85027

== ENCOUNTER 2023-12-24 16:39 | Outpatient (REF) | payer MEDICARE, SELFPAY ==
[2023-12-24 21:01] LABS: Abs Immature Grans 0.03 10^3/uL (0.0-0.06); Absolute Basophil Count 0.05 10^3/uL (0.0-0.2); Absolute Eosinophil Count 0.46 10^3/uL (0.0-0.7); Absolute Lymphocyte Count 2.33 10^3/uL (1.2-3.4); Absolute Monocyte Count 1.04 10^3/uL (0.1-0.8); Absolute Neutrophil Count 6.06 10^3/uL (1.2-6.7); Basophils % 0.5 %; Eosinophils % 4.6 %; HCT 37.9 % (36.0-46.0); HGB 12.2 g/dL (11.2-15.7); Immature Grans % 0.3 %; Lymphocytes % 23.4 %; MCHC 32.2 % (32.0-36.0); MCV 100 fL (80-95); MPV 9.6 fL (8.0-11.0); Monocytes % 10.4 %; Neutrophils % 60.8 %; Platelet Count 267 10^3/uL (130-400); RBC 3.81 10^6/uL (3.93-5.22); RDW 13.3 % (11.7-14.6); RDW-SD 48.8 fL; WBC 9.97 10^3/uL (4.4-10.8)
== END 2023-12-24 16:40 | disposition home or self-care (01) ==
LOC: NCHCN 16:39
PROVIDERS: PCP Family Medicine; Visit Provider Family Medicine
DX: L40.9 Psoriasis, unspecified (principal)
CPT/HCPCS: 80053; 85025; 86140